=== PATIENT | female | born 1980 ===

== ENCOUNTER 2024-06-24 10:16 | Outpatient (AMB) | payer OTHER, SELFPAY ==
[2024-06-24 10:39] VITALS: BP 130/90; PULSE 84; TEMP 37.6; O2SAT 98
--- NOTE | 2024-06-24 10:39 | AM.OFFWIN_ITS ---
Intake Vital Signs 06/24/24 10:39 Weight 220 lb BP 130/90 H Blood Pressure Location Lt brachial Position Sitting Pulse 84 Pulse Source Pulse Oximeter Temp 99.7 F Temp Source Oral Pulse Oximetry (%) 98 Oxygen Delivery Method Room Air Intake Visit Reasons: EP Sore throat Intake Note: Patient here for sore throat that started about 2 days ago. Patient Tobacco Use Status: Former Tobacco user Allergies Penicillins Adverse Reaction (Intermediate, Verified 06/24/24 10:50) Hives Do you need a note to return to daycare/school/sports/work: Yes HPI HPI Comments History of Present Illness Details She presents to office with L ear pain and ST 2-3 days ongoing 6/10 Throat worse with swallowing No congestion or cough No fatigue or body aches She said low grade fever but no chills PFSH Social History Patient Tobacco Use Status: Former Tobacco user Review of Systems Const Denies chills, Reports fever(s) and Denies headache(s) ENT Reports otalgia, Denies headache(s), Denies nasal congestion, Reports sore throat, Denies throat swelling and Denies tongue swelling Card Denies chest pain and Denies dyspnea Resp Denies cough and Denies dyspnea GI Denies abdominal pain and Denies vomiting Musc Denies myalgias Neuro Denies headache(s) Aller/Immun Denies throat swelling and Denies tongue swelling Physical Exam Vital Signs: Last Vital Signs Temp 99.7 F 06/24/24 10:39 Pulse 84 06/24/24 10:39 BP 130/90 H 06/24/24 10:39 Pulse Ox 98 06/24/24 10:39 Oxygen Delivery Method Room Air 06/24/24 10:39 General: Non-toxic, NAD. Speaking full sentences. Skin: Warm dry throughout Eye: EOMI HENT: Airway patent. Uvula midline. Minimal pharyngeal erythema without exudates or edema. No RUBBING BED OPERATOR. Bilateral canals clear. Slight fluid bilaterally but TM non-erythematous, non- bulging. No TM perforation or hemotympanum noted. Respiratory: CTA bilaterally. No wheezes, rales or rhonchi Cardiac: RRR. No murmur MSK: Full ROM extremities. Neurology: Alert. No aphasia or facial droop. Gait without abnormality Psych: Good mood and affect Assessment & Plan Assessment & Plan (1) Pharyngitis: Code(s): J02.9 - Acute pharyngitis, unspecified Qualifiers: Pharyngitis/tonsillitis etiology: unspecified etiology Qualified Code(s): J02.9 - Acute pharyngitis, unspecified Plan: Patient seen and evaluated. Strep negative No RUBBING BED OPERATOR Declined covid/flu/rsv swab Tylenol/Motrin Fluids, rest Patient gave verbal understanding and had no additional questions or concerns at time of discharge All questions answered Coding Level of Care Code Est Pt Level 3 (54611) Diagnoses Pharyngitis, unspecified etiology J02.9 Pharyngitis/tonsillitis etiology: unspecified etiology
--- OUTSIDE RECORDS SUMMARY | 2024-06-24 12:28 | XMS_ITS | Clinical Summary ---
Author Organization [facility] Address [address] [place] [address] Care Team Providers Care Masonry Instructor Name Role Phone Ed Mckeon PA-C Primary Care Provider [phone] Allergies Active Allergy Reactions Criticality Noted Date Comments Penicillins Hives 07/11/2015 Medications Medication Sig Dispensed Refills Start Date End Date Status albuterol (PROVENTIL) (2.5 MG/3ML) 0.083% nebulizer solution Take 2.5 mg by nebulization every 6 (six) hours as needed for wheezing. 0 Active albuterol (PROVENTIL HFA;VENTOLIN HFA) 108 (90 BASE) MCG/ACT inhaler Inhale 2 puffs into the lungs every 6 (six) hours as needed for wheezing. 0 Active omeprazole (PRILOSEC) 20 MG capsule Take 20 mg by mouth daily. 0 Active Elastic Bandages & Supports (KNEE BRACE/HINGED/REGULAR ) MISC 1 Units by Does not apply route daily. 1 each 0 10/04/2019 Active oxyCODONE-acetaminop hen (PERCOCET) 5-325 MG per tablet Take 1 tablet by mouth every 6 (six) hours as needed for pain. 8 tablet 0 04/30/2021 Active ondansetron (ZOFRAN-ODT) 4 MG disintegrating tablet Take 1 tablet (4 mg total) by mouth every 8 (eight) hours as needed for nausea. 12 tablet 0 04/30/2021 Active Active Problems Problem Noted Date Diagnosed Date Term delivered 12/02/2015 Umbilical hernia 10/27/2015 Immunizations Name Administration Dates Next Due Hepatitis B (Pediatric / Adolescent) (inactive) 07/11/2015 Tdap 12/04/2015 Family History Medical History Relation Name Comments Diabetes Father Heart disease Father Hypertension Father Diabetes Mother Hypertension Mother Relation Name Status Comments Father Alive Mother Alive Social History Tobacco Use Types Packs/Day Years Used Date Smoking Tobacco: Former Cigarettes 0.3 2 0 10/06/2009 - 12/07/2011 Smokeless Tobacco: Never Alcohol Use Standard Drinks/Week Comments No 0 (1 standard drink = 0.6 oz pur e alcohol) Sex and Gender Information Value Date Recorded Sex Assigned at Female 02/20/2019 9:46 PM EDT Gender Identity Not on file Sexual Orientation Not on file Job Start Date Occupation Industry Not on file Not on file Not on file Last Filed Vital Signs Vital Sign Reading Time Taken Comments Blood Pressure 122/78 04/30/2021 11:23 AM EST Pulse 80 04/30/2021 11:23 AM EST Temperature 37 ??C (98.6 ??F) 04/30/2021 11:23 AM EST Respiratory Rate 16 04/30/2021 11:23 AM EST Oxygen Saturation 98% 04/30/2021 11:23 AM EST Inhaled Oxygen Concentration - - Weight 86.2 kg (190 lb) 04/30/2021 11:23 AM EST Height 166.4 cm (5' 5.5 ) 04/30/2021 11:23 AM ES T Body Mass Index 31.14 04/30/2021 11:23 AM EST Plan of Treatment Health Maintenance Due Date Last Done Comments Hepatitis C Screening 1979 COVID-19 Vaccine (#1) 01/12/1980 Depression Screening 1991 BMI Counseling 07/11/1997 Preventative Health Evaluation 07/11/1997 Cervical Cancer Screening (P ap Smear) 07/11/2000 Hepatitis B Vaccines (2 of 3 - 19+ 3-dose series) 08/08/2015 07/11/2015 Influenza Vaccine (#1) 2023 DTap / Tdap / Td (2 - Td or Tdap) 12/03/2025 016 Pneumococcal Vaccine Aged Out No long er eligible based on patient's age to complete this topic RSV Ped < 20 months Aged Out No longe r eligible based on patient's age to complete this topic Advance Directives For more information, please contact: [phone] Latest Code Status on File Code Status Date Activated Date Inactivated Comments Full Code 12/01/2015 7:44 AM 12/04/2015 9:50 PM This co de status was ascertained in the following way: discussion with patient. Care Teams Masonry Instructor Relationship Specialty Start Date End Date Ed Mckeon PA-C [address] [place] [address] PCP - General Physician [employer] Flatbed Driver 10/03/19
--- OUTSIDE RECORDS SUMMARY | 2024-06-24 12:29 | XMS_ITS ---
Author Organization [facility] Address [address] [facility] [id number] [place] [address] Care Team Providers Care Professional Shopper Name Role Phone Joann Phillips Primary Care Provider ALLERGIES Allergen (clinical drug ingredient) Drug/Non Drug Allergy documented on EMR Reaction Allergy Type Onset Date Status penicillin (uncoded) hives Allergy Active REASON FOR VISIT est care, med refill MEDICATIONS Medication SIG (Take, Route, Frequency, Duration) Notes Start Date End Date Status LORazepam 0.5 MG TAKE 1 TABLET BY MOUTH TWICE A DAY NEEDED FOR 30 DAYS for 30 days 06/22/2024 Active Azithromycin 250 MG 2 tablets on the first day, then 1 tablet daily for 4 days Orally Once a day for 5 day(s) 04/26/2023 Not-Taking metFORMIN HCl ER 500 MG 1 tablet with evening meal Orally Once a day for 90 days 10/21/2023 Active LORazepam 1 MG 1 tablet Orally Once a day for 30 days 12/04/2022 Not-Taking Tessalon Perles 100 mg 1 capsule as needed Orally Three times a day for 10 days 06/10/2018 Not-Taking buPROPion HCl ER (XL) 150 MG take 1 tablet Orally daily for 90 days dose adjustment Active Flexeril 5 MG 1 tablet at bedtime as needed Orally Once a day Not-Taking Albuterol Sulfate HFA 108 (90 Base) MCG/ACT 2 puffs as needed Inhalation every 6 hrs for 30 days 06/10/2018 Not-Taking Fioricet 50-300-40 MG 1 capsule as needed Orally every 12 hrs for 15 days 06/24/2018 Not-Taking VITAL SIGNS Blood pressure systolic 121 mm Hg 06/22/19 25 Blood pressure diastolic 75 mm Hg 025 Heart Rate 80 /min 06/22/2024 Respiratory Rate 18 /min 06/22/2024 Height 64 in 06/22/2024 Weight 222.8 lbs 06/22/2024 BMI 38.24 kg/m2 06/22/2024 Oximetry 99 % 06/22/2024 Height-cm 162.56 cm 06/22/2024 Weight-kg 101.06 kg 06/22/2024 Encounters Encounter Location Date Provider Diagnosis [facility]-[address] [place] [id number] 06/22/2024 Joann Phillips Anxiety F41.9 ; PCOS (polycystic ovarian syndrome) E28.2 ; Encounter to establish care Z76.89 ; Screening for diabetes mellitus Z13.1 ; Screening for thyroid disorder Z13.29 ; Screening for lipid disorders Z13.220 ; Screening for blood disease Z13.0 and Vitamin D deficiency E55.9 ASSESSMENTS Encounter Date Diagnosis Assessment Notes Treatment Notes Treatment Clinical Notes 06/22/2024 Anxiety (ICD-10 - F41.9) 06/22/2024 PCOS (polycystic ovarian syndrome) (ICD-10 - E28.2) 06/22/2024 Encounter to establish care (ICD-10 - Z76.89) Patient presents to establish care. Labs ordered to be completed prior to CPE. Labs to be completed fasting. Patient verbalized understanding 06/22/2024 Screening for diabetes mellitus (ICD-10 - Z13.1) 06/22/2024 Screening for thyroid disorder (ICD-10 - Z13.29) 06/22/2024 Screening for lipid disorders (ICD-10 - Z13.220) 06/22/2024 Screening for blood disease (ICD-10 - Z13.0) 06/22/2024 Vitamin D deficiency (ICD-10 - E55.9) PLAN OF TREATMENT Medication Medication Name Sig Start Date Stop Date Notes LORazepam 0.5 MG TAKE 1 TABLET BY KRYSTIAN TH TWICE A DAY NEEDED FOR 30 DAYS for 30 days 06/22/2024 metFORMIN HCl ER 500 MG 1 tablet with ev ening meal Orally Once a day for 90 days 10/21/2023 buPROPion HCl ER (XL) 150 MG take 1 tablet Orally daily for 90 days dose adjustment Treatment Notes Assessment Notes Encounter to establish care Patient pres ents to establish care. Labs ordered to be completed prior to CPE. Labs to be completed fasting. Patient verbalized understanding Pending Test Test Name Order Date COMPREHENSIVE METABOLIC PANEL 06/22/2024 LIPID PANEL WITH REFLEX TO DIRECT LDL VITAMIN D QUESTASSURED 25-OH VIT D, (D2, D3), LC/MS/MS 06/22/2024 TSH W/REFLEX TO FT4 06/22/2024 HEMOGLOBIN A1c 06/22/2024 IRON, TIBC AND FERRITIN PANEL 06/22/2024 CBC (INCLUDES DIFF/PLT) (REFL) Next Appt Details Provider Name:Joann Trish Phillips , 08/10/2024 02:00:00 PM, [address] [place], [id number], Provider Name:Maria Dolores Medrano son, 08/10/2024 03:00:00 PM, [address] [place], [id number], Progress Notes * Examination Category Sub-Category Detail Notes General Examination GENERAL APPEARENCE: normal, well appearing, alert and oriented, in no acute distress, well developed, well nourished, calm and relaxed, cooperative HEART: regular rate and rhy thm, S1, S2 normal, no murmurs LUNGS: clear to auscultatio n bilaterally, no wheezes, rales, rhonchi SKIN: normal, warm and dry , Skin intact PSYCH: alert, oriented
--- OUTSIDE RECORDS SUMMARY | 2024-06-24 12:29 | XMS_ITS | Patient Health Record ---
Author Organization [employer] Address [address] [facility] [id number], [place] [address] Care Team Providers Care Cyber Policy And Strategy Planner Name Role Phone Joann Phillips Primary Care Provider Junoedd Ed Robles [phone] ALLERGIES Allergen (clinical drug ingredient) Drug/Non Drug Allergy documented on EMR Reaction Allergy Type Onset Date Status penicillin (uncoded) hives Allergy Active RESULTS Component Value Reference Range Notes BASIC METABOLIC PANEL Reviewed date:10/15/2023 08:39:01 AM Interpretation: Normal Performing Lab:NL1, [facility], [address] [place] [address], [phone] Sanaz Wilder M.D. Notes/Report: Received Date: [id number] FASTING:YES FASTING: YES GLUCOSE 69 65-99 mg/dL Fasting reference interval UREA NITROGEN (BUN) 9 7-25 mg/dL CREATININE 0.82 0.50-0.99 mg/dL EGFR 90 > OR = 60 mL/min/1.73m2 BUN/CREATININE RATIO SEE NOTE: 6-22 (calc) Not Reported: BUN and Creatinine are within reference range. SODIUM 137 135-146 mmol/L POTASSIUM 4.0 3.5-5.3 mmol/L CHLORIDE 107 98-110 mmol/L CARBON DIOXIDE 22 20-32 mmol/L CALCIUM 9.4 8.6-10.2 mg/dL HEPATIC FUNCTION PANEL Reviewed date:10/15/2023 08:39:01 AM Interpretation: Normal Performing Lab:NL1, [facility], [address] [place], [address] Sanaz Wilder M.D. Notes/Report: Received Date: [id number] FASTING:YES FASTING: YES PROTEIN, TOTAL 7.1 6.1-8.1 g/dL ALBUMIN 4.2 3.6-5.1 g/dL GLOBULIN 2.9 1.9-3.7 g/dL (calc) ALBUMIN/GLOBULIN RATIO 1.4 1.0-2.5 (calc) BILIRUBIN, TOTAL 0.5 0.2-1.2 mg/dL BILIRUBIN, DIRECT 0.1 < OR = 0.2 mg/dL BILIRUBIN, INDIRECT 0.4 0.2-1.2 mg/dL (calc) ALKALINE PHOSPHATASE 47 31-125 U/L AST 17 10-30 U/L ALT 13 6-29 U/L LIPID PANEL WITH REFLEX TO D IRECT LDL Reviewed date:10/15/2023 08:39:01 AM Interpretation: Normal Performing Lab:NL1, [facility], [address] [place] [address], [phone] Sanaz Wilder M.D. Notes/Report: Received Date: [id number] FASTING:YES FASTING: YES CHOLESTEROL, TOTAL 175 <200 mg/dL HDL CHOLESTEROL 55 > OR = 50 mg/dL TRIGLYCERIDES 105 <150 mg/dL LDL-CHOLESTEROL 100 Reference range: <100 Desirable range <100 mg/dL for primary prevention; <70 mg/dL for patients with CHD or diabetic patients with > or = 2 CHD risk factors. LDL-C is now calculated using the Marbin-Adam calculation, which is a validated novel method providing better accuracy than the Friedewald equation in the estimation of LDL-C. Marbin JUAN et al. MARAL. 2013;310(19): 5545-7114 (http://education.[employer].ItsGoinOn/faq/FAQ16 4) CHOL/HDLC RATIO 3.2 <5.0 (calc) NON HDL CHOLESTEROL 120 <130 mg/dL (calc) For patients with diabetes plus 1 major ASCVD risk factor, treating to a non-HDL-C goal of <100 mg/dL (LDL-C of <70 mg/dL) is considered a therapeutic option. TSH W/REFLEX TO FT4 Reviewed date:10/15/2023 08:39:01 AM Interpretation: Normal Performing Lab:NL1, [facility], [address] [place] [address], [phone] Sanaz Wilder M.D. Notes/Report: Received Date: FASTING:YES FASTING: YES TSH W/REFLEX TO FT4 0.69 Reference Range > or = 20 Years 0.40-4.50 Ranges First trimester 0.26-2.66 Second trimester 0.55-2.73 Third trimester 0.43-2.91 LIPASE Reviewed date:10/15/2023 08:39:01 AM Interpretation: Normal Performing Lab:[facility], [facility], [address] [place] [address], [phone] Sanaz Wilder M.D. Notes/Report: Received Date: FASTING:YES FASTING: YES LIPASE 14 7-60 U/L CBC (INCLUDES DIFF/PLT) Reviewed date:10/15/2023 08:39:01 AM Interpretation:Low Performing Lab:[facility], [facility], [address] [place] [address], [phone] Sanaz Wilder M.D. Notes/Report: Received Date: FASTING:YES FASTING: YES WHITE BLOOD CELL COUNT 5.7 3.8-10.8 Thousand/ uL RED BLOOD CELL COUNT 4.43 3.80-5.10 Million/uL HEMOGLOBIN 10.2 11.7-15.5 g/dL HEMATOCRIT 33.4 35.0-45.0 % MCV 75.4 80.0-100.0 fL MCH 23.0 27.0-33.0 pg MCHC 30.5 32.0-36.0 g/dL RDW 17.0 11.0-15.0 % PLATELET COUNT 287 140-400 Thousand/uL MPV 12.3 7.5-12.5 fL ABSOLUTE NEUTROPHILS 3300 3501-7245 cells/uL ABSOLUTE LYMPHOCYTES 8818 455-2270 cells/uL ABSOLUTE MONOCYTES 513 200-950 cells/uL ABSOLUTE EOSINOPHILS 182 15-500 cells/uL ABSOLUTE BASOPHILS 51 0-200 cells/uL NEUTROPHILS 57.9 LYMPHOCYTES 29.0 MONOCYTES 9.0 EOSINOPHILS 3.2 BASOPHILS 0.9 REASON FOR REFERRAL Reason 43 y/o female with h istory gastric bypass surgery, with steatorrhea. Please evaluate and treat Diagnosis 1 Steatorrhea (K90.9) Referral Organization [address] Referring Provider First Name Ed Referring Provider Last Name [facility] Referring Provider Speciality Physician Cardiopulmonary Technologist Referred Provider [facility] GI Referred Provider Specialty Gastroentero logy General Notes Jermaine Ochoa 0 09/30/2023 11:36:24 AM >Referral faxed to [facility] , [address] [place] [address] [address], [facility] [address], , FAX, Jermaine Ochoa 10/17/2023 01:02:35 PM >No appt scheduled, Jermaine Ochoa 12/05/2023 02:13:56 PM >No appt scheduled Clinical Notes Lizzy Jaime 02/21 10:55:32 AM >LVM to f/u no pat in records, Lizzy Jaime 02/22/2024 10:57:19 AM >info mailed Referral Priority Routine Reason * * 43 y/o female jose padron buproprion 150mg (two tablets one day, the next one tablet). She has been chronically managed on buproprion, but found 300mg daily to be too activating ( with difficulty sleeping). Please evaluate and treat for medication management. Diagnosis 1 Moderate episode of recurrent major depressive disorder (F33.1) Referral Organization [address] Referring Provider First Name Ed Referring Provider Last Name [facility] Referring Provider Speciality Physician Cardiopulmonary Technologist Referred Provider Specialty Psychiatry General Notes Latonya Kinney 0 12/05/2023 10:05:08 AM >No answer, left voicemail//GEGregoria Grisel 12/18/2023 10:30:23 AM >No answer, left voicemail//GEGregoria Grisel 12/25/2023 02:49:12 PM >3rd call attempt - LVM and Outreach Letter sent on 12/24 to Scheduled Appt with [facility] Management and Referral Addressed Referral Priority Routine MEDICATIONS Medication SIG (Take, Route, Frequency, Duration) [...] a day for 30 days 12/04/2022 Not-Taking buPROPion HCl ER (XL) 150 MG [...] 12 hrs for 15 days 06/24/2018 Not-Taking Tessalon Perles 100 mg 1 capsule as needed Orally Three times a day for 10 days 06/10/2018 Not-Taking SOCIAL HISTORY Tobacco Use: Social History Observation Description Date Details (start date - stop date) Never Smoker NA - NA Sex Assigned At : Social History Observation Description Sex Assigned At Unknown Tobacco Use/Smoking Question Answer Notes Are you a nonsmoker Alcohol Screen Question Answer Notes Did you have a drink contain ing alcohol in the past year? Yes How often did you have a dri nk containing alcohol in the past year? Monthly or less (1 point) How many drinks did you have on a typical day when you were drinking in the past year? 1 or 2 drinks (0 point) How often did you have 6 or more drinks on one occasion in the past year? Never (0 point) Points 1 Interpretation Negative Sexual History Question Answer Notes Had sex in the past 12 months (vaginal, oral, or anal)? Yes with Men only Use protection? Yes How often? All of the time Prevention strategies discussed: Condoms Have you ever had a Sexually transmitted disease ? No Last menstrual period 04/07/2023 PRAPARE Question Answer Notes What is your current housing situation? I have h ousing Are you worried about losing your housing? No What is the highest level of school that you have finished? I choose not to answer this question What is your current work situation? I choose no t to answer this question In the past year, have you o r any family members you live with been unable to get any of the following when it was really needed? Check all that apply I do not have problems meeting my needs Has lack of transportation k ept you from medical appointments, meetings, work or from getting things needed for daily living? No How often do you see or talk to people that you care about and feel close to? (For example: talking to friends on the phone, visiting friends or family, going to quaker or club meetings) I choose not to answer this question How stressed are you? Stress is when someone feels tense, nervous, anxious, or can\t sleep at night because their mind is troubled Not at all In the past year have you sp ent more than 2 nights in a row in a group home, senior care, fdc center, or juvenile correctional facility? No Are you a refugee? No What country are you from? [place] Do you feel physically and e motionally safe where you currently live? Yes In the past year, have you b een afraid of your partner or ex-partner? No PRAPARE Score: 2 PROBLEMS Problem Type ICD Code Onset Dates Problem Status W/U Status Risk SNOMED Code Notes Problem Episodic cluster headache, not intractable (G44.019) Active confirmed 730300546 Problem Screen for STD (sexually transmitted disease) (Z11.3) Active confirmed 490187360 Problem Vitamin D deficiency (E55.9) Active confirmed 82091704 Problem Anxiety (F41.9) Active confirmed 483734 02 Problem Multinodular goiter (E04.2) Active confirmed 136097931 Problem PCOS (polycystic ovarian syndrome) (E28.2) Active confirmed 415184919 Problem Daytime somnolence (R40.0) Active confirmed 857495595391 Problem Acute knee pain (M25.569) Active confirmed 81507709 Problem Mild intermittent asthma with exacerbation (J45.21) Active confirmed 334595745 Problem Moderate episode of recurrent major depressive disorder (F33.1) Active confirmed 527601715 Problem Iron deficiency anemia secondary to inadequate dietary iron intake (D50.8) Active confirmed 006543146 Problem Cluster headache, not intractable, unspecified chronicity pattern (G44.009) Active confirmed 254751890 Problem Splenomegaly (R16.1) Active confirmed 98895618 Problem History of gastric bypass (Z98.84) Active confirmed 292660090 Problem Steatorrhea (K90.9) Active confirmed 18312012 Problem Chronic major depressive disorder (F34.1) Active confirmed 248270920 Problem Nodule of right lobe of thyroid gland (E04.1) Active confirmed 760208218 VITAL SIGNS Heart Rate 80 /min 06/22/2024 Respiratory Rate 18 /min 06/22/2024 Blood pressure diastolic 75 mm Hg 06/22/2024 Oximetry 99 % 06/22/2024 Height-cm 162.56 cm 06/22/2024 Weight-kg 101.06 kg 06/22/2024 Height 64 in 06/22/2024 Blood pressure systolic 121 mm Hg 06/22/2024 Weight 222.8 lbs 06/22/2024 BMI 38.24 kg/m2 06/22/2024 Encounters Encounter Location Date Provider Diagnosis [address] [id number], [place] [address] 03/27/2024 Joann Phillips [address] [address] [facility] [address] [address] 10/21/2023 [facility] Physical exam Z00.00 ; Screening mammogram for breast cancer Z12.31 ; PCOS (polycystic ovarian syndrome) E28.2 ; Moderate episode of recurrent major depressive disorder F33.1 and Iron deficiency anemia secondary to inadequate dietary iron intake D50.[address] [address] 09/19/2023 [facility] Steatorrhea K90.9 ; Right upper quadrant pain R10.11 ; Screening for diabetes mellitus Z13.1 ; Screening for blood disease Z13.0 ; Screening for thyroid disorder Z13.29 and Screening cholesterol level Z13.[address] [address] 06/22/2024 Joann Phillips Anxiety F41.9 ; PCOS (polycystic ovarian syndrome) E28.2 ; Encounter to establish care Z76.89 ; Screening for diabetes mellitus Z13.1 ; Screening for thyroid disorder Z13.29 ; Screening for lipid disorders Z13.220 ; Screening for blood disease Z13.0 and Vitamin D deficiency E55.9 [id number] [place] [address] 12/03/2023 Ed Mckeon Moderate episode of recurrent major depressive disorder F33.1 ASSESSMENTS Encounter Date Diagnosis Assessment Notes Treatment Notes Treatment Clinical Notes 12/03/2023 Moderate episode of recurrent major depressive disorder (ICD-10 - F33.1) Referral to psychiatry advised to have a further discussion about depression medications. She may continue alternating schedule of 300 mg of Wellbutrin one day, followed by 150 mg the next day. She was advised that a psychiatrist is trained in this area, therefore their expertise could potentially help her find a different medication to help relieve her depression/anxiety, without any worse effects. Patient voiced understanding and agrees with plan. Patient denied further questions or concerns at this time. 09/19/2023 Right upper quadrant pain (ICD-10 - R10.11) 09/19/2023 Steatorrhea (ICD-10 - K90.9) We will obtain lab testing, and refer to CT GI for further workup. Is unclear the reason why she had the still rhinorrhea. Will also obtain an ultrasound to rule out any gallbladder dysfunction. 10/21/2023 Physical exam (ICD-10 - Z00.00) Mammogram screening recommended to r/o life threatening breast cancer. 10/21/2023 Screening mammogram for breast cancer (ICD-10 - Z12.31) 06/22/2024 Anxiety (ICD-10 - F41.9) 06/22/2024 PCOS (polycystic ovarian syndrome) (ICD-10 - E28.2) 06/22/2024 Encounter to establish care (ICD-10 - Z76.89) Patient presents to establish care. Labs ordered to be completed prior to CPE. Labs to be completed fasting. Patient verbalized understanding 10/21/2023 PCOS (polycystic ovarian syndrome) (ICD-10 - E28.2) We will initiate metformin ER 500mg once daily to help with PCOS and insulin insensitivity. She was advised to contact her insurance to see if ozempic is covered. 09/19/2023 Screening for diabetes mellitus (ICD-10 - Z13.1) 10/21/2023 Moderate episode of recurrent major depressive disorder (ICD-10 - F33.1) Buproprion increased to 150mg two tablets once daily. We will continue to monitor on follow up as scheduled in November. Patient voiced understanding and agrees with plan. Patient denied further questions or concerns at this time. 06/22/2024 Screening for diabetes mellitus (ICD-10 - Z13.1) 10/21/2023 Iron deficiency anemia secondary to inadequate dietary iron intake (ICD-10 - D50.8) Begin very low dose iron supplement otc, with vit c, and we will continue to monitor closely. 06/22/2024 Screening for thyroid disorder (ICD-10 - Z13.29) 09/19/2023 Screening for blood disease (ICD-10 - Z13.0) 09/19/2023 Screening for thyroid disorder (ICD-10 - Z13.29) 06/22/2024 Screening for lipid disorders (ICD-10 - Z13.220) 06/22/2024 Screening for blood disease (ICD-10 - Z13.0) 09/19/2023 Screening cholesterol level (ICD-10 - Z13.220) 06/22/2024 Vitamin D deficiency (ICD-10 - E55.9) PLAN OF TREATMENT Pending Test Test Name Order Date Ultrasound : Abdomen 09/19/2023 MAMMOGRAM, SCREENING 10/21/2023 COMPREHENSIVE METABOLIC PANEL 06/22/2024 COMPREHENSIVE METABOLIC PANEL 09/07/2021 COMPREHENSIVE METABOLIC PANEL 04/06/2014 COMPREHENSIVE METABOLIC PANEL 03/13/2017 HEPATITIS PANEL, ACUTE W/REFLEX TO CONFI RMATION 04/06/2014 CHLAMYDIA/N. GONORRHOEAE RNA, TMA 2013 LIPID PANEL WITH REFLEX TO DIRECT LDL LIPID PANEL WITH REFLEX TO DIRECT LDL LIPID PANEL WITH REFLEX TO DIRECT LDL LIPID PANEL WITH REFLEX TO DIRECT LDL VITAMIN D QUESTASSURED 25-OH VIT D, (D2, D3), LC/MS/MS 06/22/2024 VITAMIN D QUESTASSURED 25-OH VIT D, (D2, D3), LC/MS/MS 03/13/2017 HIV AB, HIV 1/2, EIA, WITH REFLEXES 12/2013 RPR (DX) W/REFL TITER AND CONFIRMATORY T ESTING 04/06/2014 TSH W/REFLEX TO FT4 04/06/2014 TSH W/REFLEX TO FT4 03/13/2017 TSH W/REFLEX TO FT4 06/22/2024 TSH W/REFLEX TO FT4 09/07/2021 HSV 1 IGG, TYPE SPECIFIC AB HERPESELECT 10/25/2017 HEMOGLOBIN A1c 03/13/2017 HEMOGLOBIN A1c 06/22/2024 IRON, TIBC AND FERRITIN PANEL 06/22/2024 IRON, TIBC AND FERRITIN PANEL 12/05/2021 IRON, TIBC AND FERRITIN PANEL 03/13/2017 CBC (INCLUDES DIFF/PLT) 03/13/2017 CBC (INCLUDES DIFF/PLT) 04/06/2014 CBC (INCLUDES DIFF/PLT) 12/05/2021 CBC (INCLUDES DIFF/PLT) 10/25/2017 CBC (INCLUDES DIFF/PLT) 09/07/2021 LYME DISEASE AB W/REFL TO BLOT (IGG, IGM ) 10/25/2017 VITAMIN B12/FOLATE, SERUM PANEL 03/13/20 17 VITAMIN B12/FOLATE, SERUM PANEL 09/08/19 22 VITAMIN B12 10/25/2017 CBC (INCLUDES DIFF/PLT) (REFL) Next Appt Details Provider Name:Joann Phillips , 08/10/2024 02:00:00 PM, [address] [place], [address], Provider Name:Maria Dolores hill, 08/10/2024 03:00:00 PM, [address] [place], [address], Insurance Providers Payer Name Payer Address Payer Phone Subscriber Number Group Number Insured Name Patient Relationship to Insured Coverage Start Date Coverage End Date DIV[employer] ADMIN [employer] [address] [place] [id number] Stephanie Peacock Self - patient is the insured MEDICAL (GENERAL) HISTORY Medical History History ICD Code gastric bypass 2010 2012 depression chronic genital herpes Tingling in extremities asthma Right lobe thyroid nodule on u/s 09/17: F NA biopsy recommended Thyroid biopsy 10/18: benign follicular n odule Surgical History Surgery Date(Month/Year) gastric bypass Hospitalization History Reason Date(Month/Year) see above cset girl 6.pounds 5 ounces 07/07/2012
--- OUTSIDE RECORDS SUMMARY | 2024-06-24 12:29 | XMS_ITS | Continuity of Care Document ---
Author Organization [facility] Address [address] [place] [address] Phone Care Team Providers Care Car Lubricator Name Role Phone Unavailable Unavailable Unavailable Procedures Procedure Date FOCUSED OUT/PT TEST, URINE (IH) EXPANDED OUT/PT URINE TEST Results Test Name Date and Time Measure Units Reference Range Abnormal Flag Status Comments Panel Description: TEST, URINE (IH) U nknown TEST, URINE (IH) 00:00:00 Positive Unknown Panel Description: TEST, URINE (IH) U nknown Document 00:00:00 See [facility] Archive Unknown [facility] Conversion Advance Directives Directive Yes / No Effective Date File Name No Information Encounters Encounter Description Practice Location Reason(s) For Visit Diagnoses Date Provider Providers Copied on Encounter FOCUSED OUT/PT [facility], [address] [place] [address], [facility], tel:[phone] Critical access hospital No Information 9 No Information [facility], [address] [place] [address], [facility], tel:[phone] Conversion U/S dating 9 No Information EXPANDED OUT/PT [facility], [address] [place] [address], [facility], tel:[phone] Critical access hospital No Information 7 No Information [facility], [address] [place] [address], [address], tel:[phone] Conversion EXAMINATION OR TEST 7 No Information Family History Family Member Type Diagnosis Age At Onset No Information Payers Payer name Insurance type Covered republican ID Authoriza tion(s) No Information Social History Type Description Quantity Date Captured Comments Sex Female Smoking Status No Information Vital Signs Date / Time: Height Weight BMI Pulse Rate Blood Pressure Temperature Respiratory Rate Body Surface Area Head Circumference Head Circ. Percentile Wt./Jayson. Percentile BMI percentile Pulse Ox Inhaled Ox 138.000 kg (305.00 lbs) 91 /min 128/80 mm[Hg] Chief Complaint And Reason For Visit No Information Reason For Referral Reason For Referral No Information History Of Present Illness Encounter Date Complaint History Of Prese nt Illness No Information Functional Status Date Functional Assessmen t No Information Instructions Date Instruction Additional Infor mation No Information Assessments Type Assessment Date No Information Patient Care Teams Name Effective Dates (start - stop) Status Members No Information
--- OUTSIDE RECORDS SUMMARY | 2024-06-24 12:29 | XMS_ITS | Clinical Summary ---
Author Organization [facility] Address [address] [place] [address] Care Team Providers Care Cdl Service Technician Name Role Phone Derrick Acosta MD Primary Care Provider [phone] Medications Omeprazole (PriLOSEC) [address] capsule TAKE 1 CAPSULE 30-60 min before breakfast 30 3 9 Active raNITIdine HCl (ZANTAC) 150 MG tablet TAKE 1 TABLET AT BEDTIME. 30 3 9 Active Active Problems Problem Noted Date Diagnosed Date Nondisplaced fracture of lateral condyle of left tibia 11/03/2019 Postnasal drip 09/07/2018 Overview (06/02/2023): Transitioned From: Normal throat exam Impression - [id number]: - Area of visible concern on posterior oropharynx was cobblestoning of the posterior oropharyngeal mucosa. This was secondary to LPR. Esophageal stricture 08/19/2018 Overview (06/02/2023): Impression - [id number]: - GI referral Laryngopharyngeal reflux 08/19/2018 Overview (06/02/2023): Impression - [id number]: - I had an extensive discussion with the patient regarding their laryngeal examination and findings which are suggestive of laryngopharyngeal reflux. We discussed lifestyle modifications including dietary changes, weight loss and medical management. Patient provided with handout.; - Omeprazole 40 mg once daily, Ranitidine 150 mg at bedtime.; - Follow-up in 8 weeks, sooner as needed. GERD (gastroesophageal reflux disease) 9 Family History Medical History Relation Name Comments Allergies (med/food/envrnmt) Other Multiple allergies : Other Asthma Other asthma : Other Hypertension Other hypertension : Other Relation Name Status Comments Other Social History Tobacco Use Types Packs/Day Years Used Date Smoking Tobacco: Never Assessed Comments:Smoking Status:Form er smoker Comments Unknown Sex and Gender Information Value Date Recorded Sex Assigned at Not on file Legal Sex Female 10:51 PM EDT Gender Identity Not on file Sexual Orientation Not on file Plan of Treatment Health Maintenance Due Date Last Done Comments Hepatitis C Screening 1979 Pap Smear 1995 DTaP/Tdap/Td (1 - Tdap) 07/11/1997 Hep B (1 of 3 - 19+ 3-dose series) 07/11/1998 Mammogram/Breast Imaging 2019 COVID-19 Vaccine (2023-2 5 season) 2023 Influenza (#1) 2023 Zoster (Shingrix) (1 of 2) 07/11/2029 HPV Vaccine Aged Out No longer eligi ble based on patient's age to complete this topic Hep A Aged Out No longer eligi ble based on patient's age to complete this topic Hib Aged Out No longer eligi ble based on patient's age to complete this topic Meningococcal ACWY Aged Out No longer eligible based on patient's age to complete this topic Pneumococcal Aged Out No longer eligi ble based on patient's age to complete this topic Care Teams Cdl Service Technician Relationship Specialty Start Date End Date Derrick Acosta MD [address] [place] [address] PCP - General 12/03/22
--- OUTSIDE RECORDS SUMMARY | 2024-06-24 12:29 | XMS_ITS ---
Author Organization [facility]. Address [address] [facility] [id number] [place] [address] Care Team Providers Care Water Main Inspector Name Role Phone Joann Phillips Primary Care Provider Ed Mckeon Unavailable [phone] REASON FOR REFERRAL Reason * * 43 y/o female jose padron buproprion 150mg (two tablets one day, the next one tablet). She has been chronically managed on buproprion, but found 300mg daily to be too activating ( with difficulty sleeping). Please evaluate and treat for medication management. Diagnosis 1 Moderate episode of recurrent major depressive disorder (F33.1) Referral Organization [address] Referring Provider First Name Ed Referring Provider Last Name Mike Referring Provider Speciality Physician Product Inspection Coordinator Referred Provider Specialty Psychiatry General Notes Latonya Kinney 0 12/05/2023 10:05:08 AM >No answer, left voicemail//GEGregoria Grisel 12/18/2023 10:30:23 AM >No answer, left voicemail//GEGregoria Grisel 12/25/2023 02:49:12 PM >3rd call attempt - LVM and Outreach Letter sent on 12/24 to Scheduled Appt with [facility] and Referral Addressed Referral Priority Routine REASON FOR VISIT Anxiety/ depression fu MEDICATIONS Medication SIG (Take, Route, Frequency, Duration) Notes Start Date End Date Status Tessalon Perles 100 mg 1 capsule as needed Orally Three times a day for 10 days 06/10/2018 Not-Taking metFORMIN HCl ER 500 MG 1 tablet with evening meal Orally Once a day for 90 days 10/21/2023 Active LORazepam 0.5 MG TAKE 1 TABLET BY MOUTH TWICE A DAY NEEDED FOR 30 DAYS for 30 11/11/2023 Active buPROPion HCl ER (XL) 150 MG 2 tablet, and then 1 tablet the following day, alternating between 300mg daily and 150mg the next day Orally as directed for 90 days dose adjustment Active Fioricet 50-300-40 MG 1 capsule as needed Orally every 12 hrs for 15 days 06/24/2018 Not-Taking Azithromycin 250 MG 2 tablets on the first day, then 1 tablet daily for 4 days Orally Once a day for 5 day(s) 04/26/2023 Not-Taking LORazepam 1 MG 1 tablet Orally Once a day for 30 days 12/04/2022 Not-Taking Flexeril 5 MG 1 tablet at bedtime as needed Orally Once a day Not-Taking Albuterol Sulfate HFA 108 (90 Base) MCG/ACT 2 puffs as needed Inhalation every 6 hrs for 30 days 06/10/2018 Not-Taking Encounters Encounter Location Date Provider Diagnosis [id number] [place] [address] 12/03/2023 Ed [facility] Moderate episode of recurrent major depressive disorder [...] further questions or concerns at this time. PLAN OF TREATMENT Medication Medication Name Sig Start Date Stop Date Notes buPROPion HCl ER (XL) 150 MG 2 tablet, and then 1 tablet the following day, alternating between 300mg daily and 150mg the next day Orally as directed for 90 days dose adjustment Treatment Notes Assessment Notes Moderate episode of recurren t major depressive disorder Referral to psychiatry advised to have a [...] further questions or concerns at this time. Referrals Referral Date Details * * 43 y/o female ta vito buproprion 150mg (two tablets one day, the next one tablet). She has been chronically managed on buproprion, but found 300mg daily to be too activating ( with difficulty sleeping). Please evaluate and treat for medication management. Next Appt Details Follow Up: prn, Reason: Provider Name:Joann Phillips , 08/10/2024 02:00:00 PM, [address] [place], [address], Provider Name:Maria Dolores hill, 08/10/2024 03:00:00 PM, [address] [place], [address], Consultation Request Notes Referral Date Referring Provider Referred Provider Not es 12/03/2023 Ed Mckeon , * * 43 y/o female taking buproprion 150mg (two tablets one day, the next one tablet). She has been chronically managed on buproprion, but found 300mg daily to be too activating ( with difficulty sleeping). Please evaluate and treat for medication management.
--- OUTSIDE RECORDS SUMMARY | 2024-06-24 12:29 | XMS_ITS ---
Author Name [facility] Organization Unknown History of Medication Use Medication Directions Dispensed Refills Start Date End Date Stat Wellbutrin SR 150 mg tablet, 12 hr sustained-release Take 1 tablet twice a day by oral route. 8 completed cefdinir 300 mg capsule TAKE 1 CAPSULE (300 MG) BY MOUTH TWICE PER DAY (EVERY 12 HOURS) FOR 7 DAYS. 3 completed terconazole 0.4 % vaginal cream INSERT 1 APPLICATORFUL VAGINALLY EVERY DAY FOR 7 DAYS 3 completed terconazole 0.4 % vaginal cream Insert 1 applicatorful every day by vaginal route for 7 days. Insert 1 applicatorful every day by vaginal route for 7 days. completed ondansetron HCl 4 mg tablet 1 TABLET BY MOUTH 3 TIMES A DAY NEEDED NAUSEA 3 completed Zoloft 25 mg tablet TAKE 1 TABLET BY ORAL ROUTE EVERY DAY active nitrofurantoin monohydrate/macrocry stals 100 mg caps 3 completed ferrous sulfate 325 mg (65 mg iron) tablet,delayed release Take 1 tablet every day by oral route for 30 days. 06/21/2015 7 completed azithromycin 250 mg tablet TAKE 2 TABLETS BY MOUTH TODAY, THEN TAKE 1 TABLET DAILY FOR 4 DAYS DIRECTED 4 completed cyclobenzaprine 10 mg tablet Take 1 tablet 3 times a day by oral route as needed. 7 completed celecoxib 200 mg capsule TAKE 1 CAPSULE TWICE A DAY WHEN NECESSARY WITH FOOD FOR PAIN 3 completed Allergies Allergen Reaction Severity Comment Documented Date Source Statu s MEDICINAL PRODUCT CONTAINING PENICILLIN AND ACTING ANTIBACTERIAL AGENT (PRODUCT) 09/26/2012 [facility] active Problems Problem Status Onset Date Problem Type Date of Resoluti on Source Abnormal uterine bleeding active ProblemAct [facility] Pain in pelvis active ProblemAct [facility] Asthma active 2012-09-26 ProblemAct [facility] History of gastric bypass active [facility] Steatorrhea active En[facility]DiagnosisAct [facility] Immunizations Vaccine Date Source Lot Number Status influenza, unspecified formulation [facility]
--- OUTSIDE RECORDS SUMMARY | 2024-06-24 12:29 | XMS_ITS | Data Portability ---
Author Organization [place] - [facility], [facility] Address [id number] [place] [address] Care Team Providers Care Casing Wringer Operator Name Role Phone KENA MIMI Primary Care Provider [phone] Assessment Encounter Date Assessment Date Assessment LastModified by Organization Details LastModified Time 04/18/2018 04/18/2018 37yo , desires sterilization for Laparoscopic bilateral salpingectomy [email or web address] Not available 04/18/2018 17:04:12 12/03/2023 12/03/2023 Pt with intermenstrual bleeding versus irregular menses. UPT done- Neg, advised to repeat in 2 weeks. Discussed PCOS as well as perimenopause. Pt to make appt for AOV and continue to monitor menses. If problematic can review options with OBGYN. If bleeding becomes heavy or she has pain again, should contact OBGYN for a sooner problem visit. Sureswab done to check for infection. Normal bimanual exam, pain has resolved. [email or web address] Not available 12/03/2023 19:05:05 Plan of Treatment Reminders Order Date Submit Date Provider Last Modified By Organization Details Last Modified Time Details Appointments None recorded. Lab bacterial vaginosis + vaginitis panel, vaginal 2023 024 [facility], [address] [place], [address] 14:31:13 test, urine 2023 024 [email or web address] In-Office Order, Internal Use Only DO Not Attach Compendium DO Not Attach Compendium, Do Not Delete/merge, [id number] 4 19:05:06 testosteron e, free, serum 2022 023 [facility], [address] [place] [address], 3 07:39:53 dhea-sulfat e, serum 2022 023 [facility], [address] [place] [address], 3 07:39:53 17-hydroxyp rogesterone , QN, serum 2022 023 [facility], [address] [place] [address], 3 07:39:54 insulin, fasting, serum 2022 023 [facility], [address] [place] [address], 3 07:39:54 pap, IG + HPV 2021 023 [email or web address], [address] [place] [address], 3 12:42:09 CBC w/ auto diff 2022 023 [facility], [address] [place] [address], 3 07:39:51 lipid panel, serum 2022 023 [facility], [address] [place] [address], 3 07:39:52 CMP, serum or plasma 2022 023 [facility], [address] [place] [address], 3 07:39:52 vitamin D, 25-hydroxy, total, serum 2022 023 [facility], [address] [place] [address], 3 07:39:52 HbA1c (hemoglobin A1c), blood 2022 023 [facility], [address] [place] [address], 3 07:39:53 TSH, serum or plasma 2022 023 [facility], [address] [place] [address], 3 07:39:53 urinalysis, dipstick 2022 023 [email or web address] In-Office Order, Internal Use Only DO Not Attach Compendium DO Not Attach Compendium, Do Not Delete/merge, [id number] 3 16:31:20 culture, urine 2022 023 [facility], [address] [place] [address], 3 11:37:19 urinalysis, dipstick 2021 022 [email or web address] In-Office Order, Internal Use Only DO Not Attach Compendium DO Not Attach Compendium, Do Not Delete/merge, [id number] 2 16:33:08 latisha wet prep 2021 022 [email or web address] In-Office Order, Internal Use Only DO Not Attach Compendium DO Not Attach Compendium, Do Not Delete/merge, [id number] 2 13:25:59 whiff test, vaginal fluid 2021 022 [email or web address] In-Office Order, Internal Use Only DO Not Attach Compendium DO Not Attach Compendium, Do Not Delete/merge, [id number] 2 13:25:59 HBsAg (hepatitis B surface Ag), confirmatio n, serum - Donna Xaviermasha [facility] 2021 022 [facility], [address] [place] [address], 2 13:26:13 RPR (rapid plasma reagin), serum - Donna Xaviermasha [facility] 2021 022 [facility], [address] [place] [address], 2 13:26:13 HIV 1+2 AB + HIV 1 p24 Ag, qualitative immunoassay , serum - Donna Awan [facility] 2021 [facility], [address] [place] [address], [id number] 2 13:26:12 hepatitis C Ab, serum - Donna Awan [facility] 2021 [facility], [address] [place] [address], [id number] 2 13:26:13 CT + NG DNA, PCR, unspecified specimen - Donna Awan [facility] 2021 [facility], [address] [place] [address], [id number] 2 02:56:21 pap, IG + HPV 2018 019 [facility], [address] [place] [address], [id number] 9 07:56:12 culture, urine 2017 018 [facility], [address] [place] [address], [id number] 8 14:24:05 Referral None recorded. Procedures None recorded. Surgeries None recorded. Imaging MAMMO, screening, tomosynthes is, bilateral [address] [facility] ([facility]) , [address], [place], [address], 3 16:31:20 MAMMO, screening, digital, bilateral, w/ CAD 2018 019 [facility] (Central[facility]) , [address], [address], [place], [address], 0 07:43:24 Medication Orders Diflucan 150 mg tablet 2021 [facility][id number], [address] [place], [address], 2 13:26:02 terconazole 0.4 % vaginal cream 2021 [facility]EM[facility] #[id number], [address] [place], [address], 13:26:02 oxycodone 5 mg tablet 2017 018 lfadoir [facility] #[id number], [address] [place], [address], 9 12:59:45 ibuprofen 800 mg tablet 2017 018 lfadoir [facility][id number], [address] [place], [address], 9 12:59:43 Patient TargetsNo targets recorded. Patient Instructions Encounter Date Encounter Id Patient Instructions Last Modified By Organization Details Last Modified Time 03/31/2022 [id number] vaginal yeast infection: care instructions Not available 03/31/2022 13:25:59 sexually transmitted disease education Not available 03/31/2022 13:25:59 Reason for Referral None Reported. Results Created Date Observation Date Name Description Value Unit Range Abnormal Flag Note LastModifiedBy Organization Detail LastModifiedTime 04/18/20 18 04/20/2018 cultu re, urine source UNSU Not Available [facility] [address] [place], [address] 04/20/2018 14:24:05 04/18/20 18 04/20/2018 cultu re, urine culture CULTU RE, URINE , ROUTI NE MICRO NUMBE R: [id number] TEST STATU S: FINAL SPECI MEN SOURC E: UNSU SPECI MEN QUALI TY: ADEQU ATE RESUL T: No Growt h Not Available [facility] [address] [place], [address] 04/20/2018 14:24:05 02/21/20 19 02/20/2019 HPV DNA, high- risk HPV MRNA E6/E7 Negati ve negati ve APTIM A HPV assay detec ts 14 high risk HPV types (HPV 16,18 ,31,3 3,35, 39,45 ,51,5 2,56, 58,59 ,66,6 8). The assay is FDA appro benny for testi ng ThinP rep liqui d Pap vials but not FDA appro benny for detec ting HPV in SureP ath liqui d Pap speci mens. In-ho use valid ation has shown the assay can detec t all HPV types from this sourc e Not Available [facility] [address] [place], [address] 02/27/2019 07:56:09 02/21/2002/20/2019 pap, IG + HPV report Report Final Gynec ologi mikael Cytol ogy Repor t ----- ----- ----- ----- ----- ----- ----- ----- ----- ----- ----- ----- ThinP rep Pap Test, HPV Scree n, Refle x HPV Genot ype SPECI MEN ADEQU ACY: SATIS FACTO RY FOR EVALU ATION ; ENDOC ERVIC AL/TR ANSFO RMATI ON ZONE COMPO NENT PRESE NT. INTER PRETA TION: NEGAT MADELINE FOR INTRA EPITH ELIAL LESIO N OR YARED PATINO . The sampl e conta ined exces sive blood , rende ring the origi nal slide unsat isfcontreras santa for inter preta tion. The sampl e was treat ed with aceti c acid to enabl e prepa ratio n of a secon d slide which conta ined enoug h squam ous cells to allow for cytol ogic inter preta tion. Elect lance Shepherd d: Anne-Marie Barragan CT ([facility] ) Elect lance Shepherd d: Katheryn Robison CT ([facility] ) ----- ----- ----- ----- ----- ----- ----- ----- ----- ----- ----- ----- CLINI MIKAEL INFOR MATIO N: LMP: ng Speci men Sourc e: Cervi x, Endoc ervix HPV RESUL TS: HPV mRNA E6/E7 [id number] Appro benny: 02/23 Negat madeline REF RANGE : Negat madeline CPT Codes : 87611 ICD Codes : Z01.4 19 Not Available [facility] [address] [place], [address] 02/27/2019 07:56:12 03/31/20 22 04/03/2022 CHLAM YDIA/ N. GONOR RHOEA E RNA, TMA, UROGE NITAL chlamydia trachomatis RNA, tma, urogenital NOT DETECT ED not detect ed normal Not Available [facility] [place] [facility] [address], [address], 04/03/2022 02:56:21 03/31/20 22 04/03/2022 CHLAM YDIA/ N. GONOR RHOEA E RNA, TMA, UROGE NITAL neisseria gonorrhoeae RNA, tma, urogenital NOT DETECT ED not detect ed normal Not Available [facility] [place] [facility] [address], [address], 04/03/2022 02:56:21 03/31/20 22 04/03/2022 CHLAM YDIA/ N. GONOR RHOEA E RNA, TMA, UROGE NITAL comment The shelbi tical perfo rmanc e shay cteri stics of this assay , when used to test SureP ath(T M) speci mens have been deter mined by [facility]. The modif icati ons have not been clear ed or appro benny by the FDA. This assay has been valid ated pursu ant to the CLIA regul ation s and is used for clini mikael purpo ses. For addit ional infor tosha martinez e refer to https ://ed ucati on.qu estdi [employer] tics. com/f aq/FA Q154 (This link is being provi ded for infor senthil fisher/ educbecky barrientos l purpo ses only. ) Not Available [facility] [place] [facility] [address], [address], 04/03/2022 02:56:21 03/31/20 22 03/31/2022 urina lysis , dipst ick Leukocytes Negati ve Not Available In-Office Order Internal Use Only DO Not Attach Compendium DO Not Attach Compendium, Do Not Delete/merge, [id number] 03/31/2022 14:31:28 03/31/20 22 03/31/2022 urina lysis , dipst ick Nitrite negati ve Not Available In-Office Order Internal Use Only DO Not Attach Compendium DO Not Attach Compendium, Do Not Delete/merge, [id number] 03/31/2022 14:31:28 03/31/20 22 03/31/2022 urina lysis , dipst ick Urobilinogen Normal : 0.2 mg/dl Not Available In-Office Order Internal Use Only DO Not Attach Compendium DO Not Attach Compendium, Do Not Delete/merge, [id number] 03/31/2022 14:31:28 03/31/20 22 03/31/2022 urina lysis , dipst ick Protein Negati ve Not Available In-Office Order Internal Use Only DO Not Attach Compendium DO Not Attach Compendium, Do Not Delete/merge, [id number] 03/31/2022 14:31:28 03/31/20 22 03/31/2022 urina lysis , dipst ick pH 5.0 Not Available In-Office Order Internal Use Only DO Not Attach Compendium DO Not Attach Compendium, Do Not Delete/merge, [id number] 03/31/2022 14:31:28 03/31/20 22 03/31/2022 urina lysis , dipst ick Blood Large: +3 Not Available In-Office Order Internal Use Only DO Not Attach Compendium DO Not Attach Compendium, Do Not Delete/merge, [id number] 03/31/2022 14:31:28 03/31/20 22 03/31/2022 urina lysis , dipst ick Ketone Negati ve Not Available In-Office Order Internal Use Only DO Not Attach Compendium DO Not Attach Compendium, Do Not Delete/merge, [id number] 03/31/2022 14:31:28 03/31/20 22 03/31/2022 urina lysis , dipst ick Bilirubin Negati ve Not Available In-Office Order Internal Use Only DO Not Attach Compendium DO Not Attach Compendium, Do Not Delete/merge, [id number] 03/31/2022 14:31:28 03/31/20 22 03/31/2022 urina lysis , dipst ick Glucose Negati ve Not Available In-Office Order Internal Use Only DO Not Attach Compendium DO Not Attach Compendium, Do Not Delete/merge, [id number] 03/31/2022 14:31:28 03/31/20 22 03/31/2022 urina lysis , dipst ick Appearance Clear Not Available In-Offi ce Order Internal Use Only DO Not Attach Compendium DO Not Attach Compendium, Do Not Delete/merge, [id number] 03/31/2022 14:31:28 03/31/20 22 03/31/2022 urina lysis , dipst ick Color Yellow Not Available In-Office Order Internal Use Only DO Not Attach Compendium DO Not Attach Compendium, Do Not Delete/merge, [id number] 03/31/2022 14:31:28 03/31/20 22 03/31/2022 whiff test, vagin al fluid Result negati ve Not Available In-Office Order Internal Use Only DO Not Attach Compendium DO Not Attach Compendium, Do Not Delete/merge, [id number] 03/31/2022 13:22:43 03/31/20 22 03/31/2022 latisha wet prep Hyphae Presen t Not Available In-Office Order Internal Use Only DO Not Attach Compendium DO Not Attach Compendium, Do Not Delete/merge, [id number] 03/31/2022 13:22:42 03/31/20 22 03/31/2022 latisha wet prep Clue Cells Absent Not Available In-Offi ce Order Internal Use Only DO Not Attach Compendium DO Not Attach Compendium, Do Not Delete/merge, [id number] 03/31/2022 13:22:42 03/31/20 22 03/31/2022 latisha wet prep Yeast Presen t Not Available In-Office Order Internal Use Only DO Not Attach Compendium DO Not Attach Compendium, Do Not Delete/merge, [id number] 03/31/2022 13:22:42 03/31/20 22 03/31/2022 latisha wet prep Other neg tric Not Available In-Office Order Internal Use Only DO Not Attach Compendium DO Not Attach Compendium, Do Not Delete/merge, [id number] 03/31/2022 13:22:42 05/11/19 23 05/13/2022 CULTU RE, URINE , ROUTI NE culture, urine, routine SEE NOTE CULTU RE, URINE , ROUTI NE Micro Numbe r: [id number] Test Statu s: Final Speci men Sourc e: Urine , clean catch Speci men Quali ty: Adequ ate Resul t: Mixed genit al crow isola mary. These super ficia l bacte cleopatra are not indic ative of a urina ry tract infec tion. No furth er organ ism ident ifica tion is warra nted on this speci men. If clini stefanie indic ated, recol lect clean -catc h, mid-s tream urine and trans marika immed iatel y to Urine Cultu re Trans port Tube. Not Available [employer] [facility] [address], [address], 05/13/2022 11:37:19 05/11/19 23 05/19/2022 THINP REP TIS PAP AND HPV MRNA E6/E7 WITH REFLE X TO HPV 16,18 /45 clinical information: normal Routi ne exam Not Available [facility] [address], [place], [address], 05/19/2022 12:42:09 05/11/19 23 05/19/2022 THINP REP TIS PAP AND HPV MRNA E6/E7 WITH REFLE X TO HPV 16,18 /45 LMP: normal 04/24 Not Available [facility] [address], [address], 05/19/2022 12:42:09 05/11/19 23 05/19/2022 THINP REP TIS PAP AND HPV MRNA E6/E7 WITH REFLE X TO HPV 16,18 /45 prev. Pap: normal 02/20 Not Available [facility] [address], [place], [address], 05/19/2022 12:42:09 05/11/19 23 05/19/2022 THINP REP TIS PAP AND HPV MRNA E6/E7 WITH REFLE X TO HPV 16,18 /45 prev. BX: normal NONE GIVEN Not Available [facility] [address], [place], [address], 05/19/2022 12:42:09 05/11/1905/19/2022 THINP REP TIS PAP AND HPV MRNA E6/E7 WITH REFLE X TO HPV 16,18 /45 source: normal Cervi x, Endoc ervix Not Available [facility] [address], [place], [address], 05/19/2022 12:42:09 05/11/1905/19/2022 THINP REP TIS PAP AND HPV MRNA E6/E7 WITH REFLE X TO HPV 16,18 /45 statement of adequacy: normal Satis facto ry for evalu ation . Endoc ervic al/tr ansfo rmati on zone compo nent prese nt. Not Available [facility] [address], [place], [address], 05/19/2022 12:42:09 05/11/1905/19/2022 THINP REP TIS PAP AND HPV MRNA E6/E7 WITH REFLE X TO HPV 16,18 /45 interpretati on/result: normal Negat madeline for intra epith elial lesio n or malig marcella . Not Available [facility] [place] [facility] [address], [place], [address], 05/19/2022 12:42:09 05/11/1905/19/2022 THINP REP TIS PAP AND HPV MRNA E6/E7 WITH REFLE X TO HPV 16,18 /45 comment: normal This Pap test has been evalu ated with compu ter [place] mary techn ology . Not Available [facility] [place] [facility] [address], [place], [address], 05/19/2022 12:42:09 05/11/19 23 05/19/2022 THINP REP TIS PAP AND HPV MRNA E6/E7 WITH REFLE X TO HPV 16,18 /45 cytotechnolo gist: normal MSM, CT( CP) CT scree kj locat ion: [facility] [address], [place] [id number] Not Available [facility] [place] [facility] [address], [place], [address], 05/19/2022 12:42:09 05/11/19 23 05/19/2022 THINP REP TIS PAP AND HPV MRNA E6/E7 WITH REFLE X TO HPV 16,18 /45 comment EXPLA NATOR Y NOTE: The Pap is a scree kj test for cervi mikael cance r. It is not a diagn ostic test and is subje ct to false negat madeline and false posit madeline resul ts. It is most relia ble when a satis facto ry sampl e, regul radha obtai meg, is submi tted with relev ant clini mikael findi ngs and histo ry, and when the Pap resul t is evalu ated along with histo ronnie and curre nt clini mikael infor matio n. Not Available [facility] [place] [facility] [address], [place], [address], 05/19/2022 12:42:09 05/11/19 23 05/19/2022 THINP REP TIS PAP AND HPV MRNA E6/E7 WITH REFLE X TO HPV 16,18 /45 HPV MRNA E6/E7 Not Detect ed not detect ed normal Metho dolog y: Trans cript ion-M ediat ed Ampli ficat ion This assay detec ts E6/E7 viral messe nger RNA (mRNA ) from 14 high- risk HPV types (16,1 8,31, 33,35 ,39,4 5,51, 52,56 ,58,5 9,66, 68). Cervi mikael sourc es are requi red for HPV testi ng. If a vagin al sourc e from a patie nt who has had a total hyste recto my with remov al of cervi x was submi tted, pleas e conta ct the testi ng labor atory for alter nativ e testi ng optio ns. For addit ional infor tosha martinez e refer to http: //[facility] cesar fisher.que stdia gnost ics.c om/fa q/FAQ 129v1 (This link if provi ded for infor senthil fisher/ educa floyd l purpo ses only. ) Not Available [facility] [address] [place] [address], [place], [address], 05/19/2022 12:42:09 05/11/19 23 05/11/2022 urina lysis , dipst ick Interpretati on negati ve Not Available In-Office Order Internal Use Only DO Not Attach Compendium DO Not Attach Compendium, Do Not Delete/merge, [id number] 05/11/2022 15:52:59 12/03/19 24 12/03/2023 ADVAN BING BACTE RIAL VAGIN OSIS (BV), TMA adv bacterial vaginosis (bv), tma Negati ve negati ve Not Available [facility] [address], [place], 12/04/2023 14:31:12 12/03/19 24 12/03/2023 ADVAN BING MONA DA VAGIN ITIS (CV)/ TRICH OMONA S VAGIN BRISEYDA (TV), TMA giovanni species Negati ve negati ve Not Available [facility] [address], [place], 12/04/2023 14:31:13 12/03/19 24 12/03/2023 ADVAN BING MONA DA VAGIN ITIS (CV)/ TRICH OMONA S VAGIN BRISEYDA (TV), TMA giovanni glabrata Negati ve negati ve Not Available [facility] [address], [place], 12/04/2023 14:31:13 12/03/19 24 12/03/2023 ADVAN BING MONA DA VAGIN ITIS (CV)/ TRICH OMONA S VAGIN BRISEYDA (TV), TMA trichomonas vaginalis (TV), tma Negati ve negati ve Not Available [facility] [address] [place], [address] 12/04/2023 14:31:13 12/03/19 24 12/03/2023 CHLAM YDIA/ GONOR RHOEA E RNA, TMA neisseria gonorrhoeae RNA, tma Negati ve negati ve The perfo rmanc e of endoc ervic al, vagin al, and male ureth ral swab speci mens, male and femal e urine speci mens, and Prese rvCyt Solut ion liqui d Pap speci mens has not been evalu ated in adole scent s less than 16 years of age. Not Available [facility] [address] [place], [address] 12/04/2023 14:31:14 12/03/19 24 12/03/2023 CHLAM YDIA/ GONOR RHOEA E RNA, TMA chlamydia trachomatis RNA, tma Negati ve negati ve The perfo rmanc e of endoc ervic al, vagin al, and male ureth ral swab speci mens, male and femal e urine speci mens, and Prese rvCyt Solut ion liqui d Pap speci mens has not been evalu ated in adole scent s less than 16 years of age. Not Available [facility] [address] [place], [address] 12/04/2023 14:31:14 12/03/19 24 12/03/2023 pregn luisa test, urine Result negati ve Not Available In-Office Order Internal Use Only DO Not Attach Compendium DO Not Attach Compendium, Do Not Delete/merge, [id number] 12/03/2023 19:04:20 02/24/20 19 02/20/2019 CT, abdom en + pelvi s, w/ contr ast No observ ation record ed. [email or web address] Not Available 2018 11:15:56 05/11/19 23 05/11/2022 US, trans vagin al RAD [email or web address] [employer] [id number] 05/15/2022 16:07:29 Result Notes Documentation Provider Name and Address Organization Details Recorded Time Pap, Ig + Hpv Mrna E6/e7 + Reflex Hpv (16+18+45) : PAP wnl, neg HPV GILLES MARES MD [address], [place], [address], [facility] 05/20/2022 20:17:04 Problems Name Problem SNOMED Code Status Onset Date Resolution Date Notes Provider Name and Address Organization Details Recorded Time Gestatio n period, 30 weeks [id number] Completed 01/25/2018 Removal Reason: N/A GILLES MARES MD [address] [facility], [place], [address], [facility] 8 05:51:26 Gestatio n period, 30 weeks [id number] Completed Kerline Palmer null, [facility] 6 16:14:11 Gestatio n period, 33 weeks 84681775 Completed 01/25/2018 Removal Reason: N/A GILLES MARES MD [address], [place], [address], [facility] 8 05:51:34 Gestatio n period, 33 weeks [id number] Completed Kerline Palmer null, [facility] 6 16:14:11 Baby prematur e 32-36 weeks [id number] Completed 01/25/2018 Removal Reason: N/A GILLES MARES MD [address], [place], [address], [facility] 8 05:51:19 Baby prematur e 32-36 weeks [id number] Completed Kerline Palmer null, [facility] 6 16:14:11 Familial amyloid polyneur opathy, 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 Erin Dial null, [facility] 7 13:07:25 Familial amyloid polyneur opathy, Religion type [id number] Completed Kerline Palmer null, [facility] 6 16:14:11 Abdomina l pain in pregnanc y [id number] Completed 01/25/2018 Removal Reason: N/A GILLES MARES MD [address], [place], [place], [address] [place] [address] 4, [facility] 8 05:51:51 Abdomina l pain in pregnanc y 449284071 Completed Kerline Palmer null, [facility] 6 16:14:11 Gestatio n period, 36 weeks [id number] Completed 01/25/2018 Removal Reason: N/A GILLES MARES MD [address], [place], [place], [address] [place] [address] 4, [facility] 8 05:51:11 Gestatio n period, 36 weeks 91413730 Completed Kerline Palmer null, [facility] 6 16:14:10 Poor growth affectin g manageme nt [id number] Completed 01/25/2018 Removal Reason: N/A GILLES MARES MD [address], [place], [place], [address] [place] [address] 4, [facility] 8 05:51:02 Poor growth affectin g manageme nt 202793528 Completed Kerline Palmer null, [facility] 6 16:14:11 Genital herpes simplex 03550632 Active Erin Dial null, [facility] 7 13:07:25 Dysuria 96728414 Completed 01/25/2018 Removal Reason: N/A GILLES MARES MD [address], [place], [place], [address] [place] [address] 4, [facility] 8 05:51:43 Dysuria [id number] Completed Kerline Palmer null, [facility] 6 16:14:11 Pain of head and neck region 165615894 Active Erin Dial null, [facility] 7 13:07:25 Pain of head and neck region 660682960 Completed Kerline Palmer null, [facility] 6 16:14:11 Low back pain 081523784 Active Erin Dial null, [facility] 7 13:07:25 Low back pain 514345499 Completed Kerline Palmer null, [facility] 6 16:14:10 Asthma 579087086 Active 2012 Erin Dial null, [facility] 7 13:07:25 Pain in pelvis 44377560 Active Erin Dial null, [facility] 7 13:07:25 Abnormal uterine bleeding [id number] 100 Active Erin Dial null, [facility] 7 13:07:25 Abdomina l pain in early pregnanc y [id number] Completed 01/25/2018 Removal Reason: N/A GILLES MARES MD [address] [place] [address], 3[address] Floor, [place], [address] [place] [address] 8 05:50:52 History of bariatri c surgical procedur e [id number] Completed CBC, iron, ferritin , calcium and vit D level each trim Kerline Palmer null, [facility] 6 16:14:11 Uterine scar from previous surgery in pregnanc y, childbir and the puerperi [id number] Completed RCS 11/30 Kerline Palmer null, [facility] 6 16:14:11 Genital herpes simplex 71605900 Completed Kerline Palmer null, [facility] 6 16:14:10 Uterine scar from previous surgery in pregnanc y, childbir th and the puerperi 103894994 Completed 01/25/2018 RCS 8/4 Removal Reason: N/A GILLES MARES MD [address] [facility], [address] [place] [address], [phone], [facility] 8 05:52:13 Mild asthma 139584837 Completed Kerline Palmer null, [facility] 6 16:14:10 Anemia of pregnanc y 81079579 Completed 01/25/2018 on iron Removal Reason: N/A GILLES MARES MD [address] [facility], [address] [place] [address], [phone], [facility] 8 05:50:41 Anemia of pregnanc y 18723718 Completed on iron Kerline Estela null, [facility] 6 16:14:11 Problem Notes None recorded. Procedures Surgical History Date Name Laterality Status Provider Name and Address Organization Details Recorded Time 06/08/19 23 Saline Infusion Sonogram (SIS) cancelled Stephanie Hickey [facility] 05/24/2022 13:49:04 05/11/19 23 U/S PASTRY FINISHER Transvaginal completed GILLES MARES MD [address] [facility], [address] [place] [address], [phone], [facility] 05/15/2022 16:15:38 05/11/19 23 Date of Last Pap Smear completed Stephanie Hickey [facility] 05/25/2022 10:22:33 08/13/19 18 IUD Removal completed Sharlene Foster CNM [facility] 08/12/2017 11:01:02 01/26/20 17 IUD Insert completed GILLES MARES MD [address] [facility], [address] [place] [address], [phone], [facility] 01/25/2017 13:28:18 01/18/20 17 Saline Infusion Sonogram (SIS) completed GILLES MARES MD [address] [facility], [address] [place] [address], [phone], [facility] - [facility] 01/17/2017 19:57:03 08/21/19 17 Endometrial Biopsy Procedure Note completed GILLES MARES MD [address] [facility], [address] [facility], [place], [address], [facility] - [facility] 08/20/2016 16:02:02 07/07/19 17 Date of Last Mammogram completed Erin Dial [facility] 01/17/2017 14:17:56 01/12/20 16 O9G-CIAQ (0503F) completed GILLES MARES MD [address] [facility], [address] [facility], [place], [address], [facility] 01/17/2016 11:18:18 01/12/20 16 R2J-EEJEV completed GILLES MARES MD [address] [facility], [address] [place] [address], [place], [address], [facility] 01/17/2016 11:18:18 12/01/19 16 Caesarean Section completed Amira Ochoa [facility] 12/06/2015 11:37:34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 at the Laboratory . Advised she may see her lab results on her patient portal before the PASTRY FINISHER has had time to review them. Advised if any results are abnormal and need treatment her PASTRY FINISHER office will reach out to her for management . Candidiasis of vagina 72 679084 B37.31 Discussed with patient the microscope examverao phillip Summers performed today on her vaginal discharge confirms she has a vaginal yeast infection. Advised vaginal yeast occurs due to an imbalance in the pH of her vagina. This can occur due to stress, high sugar intake..Tr eatment plan reviewed with client, advised to take Diflucan tablets as prescribed . Advised I am also ordering Terazol 7 vaginal cream as she has menses today and it may not work as well during menses. [id number] GILLES MARES MD TAY2 [address] [facility] [address] 05/11/2022 14:52:05 05/11/2022 15:58:33 Gynecologic examination 22818402 Z01.419 PAP SENT W/ HPV Performs SBE. MMG next year.Due for routine blood tests. Congratula mary on weight loss. Depression screening 171 575342 Z13.31 Feels somewhat down but feels it is situationa l Screening mammography 24 029741 Z12.31 Female hirsutism 6209549 9 L68.0 Was investigat ed before, will repeat blood tests Menorrhagia 759901342 N9 2.0 Pt informed pelvic US shows thickened endometriu m, plan to repeat after next menses, possible SIS/EMB. Recurrent urinary tract infection 444475864 N39.0 UCx sent due to recent UTI and still feeling not completely resolved [id number] JOSE ZAPATA CNM WEC3 [address] [facility] [address] [place] [address] 12/03/2023 18:22:22 12/03/2023 19:57:57 Irregular periods 90763834 N92.6 Health Concerns Section Related Observation LastModified by Organization Rubaai ls LastModified Time None Recorded Concern Status LastModified by Organization Details LastModified Time None Recorded Advance Directives Directive None Recorded Payers Encounter Date Sequence Insurance Name Policy Number Policy Bradshaw Covered Member ID Bradshaw Member ID Guarantor Name 04/18/2018 1 [place] [id number] Stephanie T Ayush [id number] Stephanie T Ayush 02/20/2019 1 [place] [id number] Stephanie T Ayush [id number] Stephanie T Ayush 03/31/2022 1 [facility] [id number] Stephanie T Ayush [id number] Stephanie T Ayush 05/11/2022 1 [facility] [id number] Stephanie T Ayush [id number] Stephanie T Ayush 12/03/2023 1 [employer] [id number] Stephanie T Ayush [id number] Stephanie T Ayush Notes Date Note Type Note Provider Name and Address Organization Details Recorded Time 04/18/2018 text/html 37yo desire s sterilization. PMHx: Asthma PSHx: L/S gastric bypass, c/s x 2 CARMELO LENNON DO [address] [facility], [address] [place] [address], [phone], [facility] 04/18/2018 17:05:55 02/20/2019 text/html [facility] Annual GYNReported bypatient.History: no gynecologic complaints; no change in interval history Menstrual cycle:Normal menses; Pt c/o lower pelvic pain for 3-4 days Urinary symptoms:No hematuria; No incontinence Vulva:No genital lesion Vagina:Normal vaginal discharge Breast:No breast pain; No breast lump Sexual activity:sexually active yes Psychological symptoms:No depression; No anxiety Preventive measures:Encourage self breast examination; Encourage regular exercise; Encourage regular mammograms starting age 40; Followed with Q3 year pap smear and high risk HPV typing GILLES MARES MD [address], [address], [facility] 02/20/2019 15:21:12 03/31/2022 text/html [facility] Pelvic PainReported bypatient.Location :suprapubic Onset/Timin days Duration:intermitt ent Quality:cramping Severity:moderate Associated Symptoms:no vaginal discharge; no pain with urination; no feelings of urgency; no urinary frequency; slight itch, bleeding Women? s After-Hours Care problem visit. NEW PATIENT last seen at [facility] 01/2019 Here for evaluation and management of 3 days of light bleeding started the morning after having sex, concerned as partner stimulated her with his fingers so wondering could she have cut something. LMP: 03/11/22 - normally gets a menses every month, normally heavy and lasts about 4-5 days. 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 Last Pap 02/20/2019 was wnl Years ago history of CX polypectomy - results were wnl, but reports she had cryo done. Sexually activity: YesPartner: Male# of sexual Partners: 1 with partner for 3 months but recently started having sex. Wanting full STD testing done. Donna Awan CNM [address] [facility], [address] [place] [address], [phone], [facility] 03/31/2022 16:33:17 05/11/2022 text/html [facility] Annual GYNReported bypatient.History: no gynecologic complaints Menstrual cycle:Normal menses (heavy) Urinary symptoms:No hematuria; No incontinence Vulva:No genital lesion Vagina:Normal vaginal discharge Breast:No breast pain; No breast lump; No nipple discharge Current Contraception:Sati sfied with current contraception; control not practiced Sexual activity:No sexual complaints; No pain during intercourse; Normal libido Menopausal symptoms:No menopausal symptoms; Normal vaginal lubrication Psychological symptoms:No depression; No anxiety; No PMDD Preventive measures:Encourage regular exercise; Followed with Q3 year pap smear and high risk HPV typing; Needs to schedule mammogram HAD UTI A FEW MONTHS BACK, NOW SEE [place] IN UA. GILLES MARES MD 175 [facility], [address] [facility], [place], [address], [facility] 05/15/2022 16:16:03 12/03/2023 text/html Pt with menses coming 2 weeks early. Started as spotting and some RLQ pain, then to light menses. Pain has resolved. Bleeding continues. pt has hx of PCOS and irregular periods years ago, have been regular for many years. Pt also thinking possibly ruptured cyst JOSE ZAPATA, CNM [address] [facility], [address], [place], [address], [place] [facility] 12/03/2023 19:05:16 OBGyn Episode Ob Episode Information Episode Created Date Number of Fetuses Patient Bloodtype Patient rh Status Prepregnancy Weight lbs Domestic Partner Domestic Partner Phone Father Name Running Specialist Status 05/13/19 16 1 O Positive CLOSED Fetus Data First Name Last Name Admitted to NICU Weight (g) Sex Living Outcome Pediatric Complications Fetus ID Race Codes Race Delivery Type [id number] Problems Problem Notes Problem Name Start Date End Date Resolution Snomed Code Not e History of bariatric surgical procedure 078194839 CBC, iron , ferritin, calcium and vit D level each trim Uterine scar from previous surgery in , childbirth and the puerperium 742812495 RCS 8/ Mild asthma 357469213 Gestation period, 30 weeks 97201568 Gestation period, 33 weeks 05740660 Dysuria 18655031 Gestation period, 36 weeks 40197393 Anemia of 72598213 on iron Genital herpes simplex 4321805 6 Abdominal pain in 787393915 Baby premature 32-36 weeks 092393902 Familial amyloid polyneuropathy, Religion type 25978551 Pain of head and neck region 312563602 Low back pain 550099395 Poor growth affecting management 190519319 Angel Calculation Initial Angel Date Initial Exam Date Initial Exam Provider Initial Ultrasound Date Last Menstrual Period Date Ultra Sound Weeks Gestation 12/06/2015 05/13/2015 05/13/2015 03/03/2015 10 Eighteen To Twenty Week Angel Update Ultra Sound Date Fundal Height At Umbil Quickening Date Ultra Sound Latest Weeks Gestation Final Angel Confirmed By Final Angel Confirmed Date Final Angel Date Ultra Sound Latest Days Gestation 0 [email or web address] 10/13/2015 12/08/19 16 0 Pre-gallito Flowsheet Flowsheet Date 05/13/2015 Casiano Score Blood Edema Fundus Height Fundus Units Glucose Ketones Leukocytes Nitrite Labor Signs Protein Cervic Dilation Cervic Effacement Cervic Station none 10 cm none neg Type Weight in lbs Pre/Post Dialysis Refused 182.460076708735 BP Diastolic BP Location Tested BP Systolic BP Type 78 120 Fetus Heart Rate Present A 155 Present Fetus Movement Comments Patient interested in NTL an d possibly cell free DNA. will do chlamydia and GC testing on urine. Will not do glucola with history of gastric bypass. First trimester BW ordered. 05/16/2012 had negative 23 mutation cystic fibrosis done with last . Flowsheet Date 06/06/2015 Casiano Score Blood Edema Fundus Height Fundus Units Glucose Ketones Leukocytes Nitrite Labor Signs Protein Cervic Dilation Cervic Effacement Cervic Station none 13 wks none neg Type Weight in lbs Pre/Post Dialysis Refused 183.936357797290 BP Diastolic BP Location Tested BP Systolic BP Type 60 120 Fetus Heart Rate Present Fetus Movement Comments Did not do 1st trim blood te sts, will do them todayContinues with daily N/V but able to keep down food; declines intervention at this time, will f/u in 2 weeks.Takes PNVDeclines flu shotUnable to doppler FHR, sent for US1st trim ST results not received Flowsheet Date 06/21/2015 Casiano Score Blood Edema Fundus Height Fundus Units Glucose Ketones Leukocytes Nitrite Labor Signs Protein Cervic Dilation Cervic Effacement Cervic Station none 16 wks none none neg Type Weight in lbs Pre/Post Dialysis Refused 186.697809528143 BP Diastolic BP Location Tested BP Systolic BP Type 68 120 Fetus Heart Rate Present A 145 Present Fetus Movement A Yes Comments Ob visit . pt feeling well.I nformed about anemia, iron erx sentReceived DNA test result from [facility], wnlNeeds AFP onlyLevel 2 US in 3-4 wkDeclines flu vaccine Flowsheet Date 07/18/2015 Casiano Score Blood Edema Fundus Height Fundus Units Glucose Ketones Leukocytes Nitrite Labor Signs Protein Cervic Dilation Cervic Effacement Cervic Station none 19 wks none none neg Type Weight in lbs Pre/Post Dialysis Refused 188.505241440399 BP Diastolic BP Location Tested BP Systolic BP Type 60 100 Fetus Heart Rate Present A 155 Present Fetus Movement A Yes Comments OB VISIT PT FEELING OK. STIL L NOT EATING WELL. AFP DONE TODAY. PT BOOKED FOR LEVEL TWO U/S 07/26/15Weight gain during discussedHad a needle injury at work, with negative blood work; received hep B vaccine as not immunisedwill send for iron, vit B12 and folate levels; she has nod taken vit B 12 since Flowsheet Date 08/12/2015 Casiano Score Blood Edema Fundus Height Fundus Units Glucose Ketones Leukocytes Nitrite Labor Signs Protein Cervic Dilation Cervic Effacement Cervic Station none 24 cm none none neg Type Weight in lbs Pre/Post Dialysis Refused 192.023725906281 BP Diastolic BP Location Tested BP Systolic BP Type 64 96 Fetus Heart Rate Present A 145 Present Fetus Movement A Yes Comments PT states that her appetite is a little better. Had a syncopal episode 2 wk ago, seen in ER and found with Hgb 9.3. Feels tired.Will send for hematology consult for anemia as she cannot tolerate PO iron.Pt informed about increased vit B12 and nl folate levelWill check 2nd trim blood tests and HgbA1c instead of 1GT Flowsheet Date 09/16/2015 Casiano Score Blood Edema Fundus Height Fundus Units Glucose Ketones Leukocytes Nitrite Labor Signs Protein Cervic Dilation Cervic Effacement Cervic Station none 30 cm none Type Weight in lbs Pre/Post Dialysis Refused 192.753582451055 BP Diastolic BP Location Tested BP Systolic BP Type 60 100 Fetus Heart Rate Present A 145 Present Fetus Movement A Decreased Comments Has seen Dr Velazquez at [facility], received 2 uPRBC, and will follow up in 3 wk, will obtain recordsC/o decreased FM, will do NST todayWill do blood tests todayEFW US at [facility] at 32 wk Flowsheet Date 09/29/2015 Casiano Score Blood Edema Fundus Height Fundus Units Glucose Ketones Leukocytes Nitrite Labor Signs Protein Cervic Dilation Cervic Effacement Cervic Station none 31 cm none negative none neg Type Weight in lbs Pre/Post Dialysis Refused 195.396116969902 BP Diastolic BP Location Tested BP Systolic BP Type 74 104 sitting Fetus Heart Rate Present A 140 Present Fetus Movement A Yes Comments C/o heartburn, continues to vomit but able to keep down food. Advised for Tums and OTC pepcidF/u with hematology on 6/8Has appt for US at [facility] in 2 wkRequests to schedule RCS, not interested in TOLAC anymore Flowsheet Date 10/13/2015 Casiano Score Blood Edema Fundus Height Fundus Units Glucose Ketones Leukocytes Nitrite Labor Signs Protein Cervic Dilation Cervic Effacement Cervic Station none 32 none neg Type Weight in lbs Pre/Post Dialysis Refused 196.762505664662 BP Diastolic BP Location Tested BP Systolic BP Type 74 110 Fetus Heart Rate Present A 150 Fetus Movement A Yes Comments unable to void, pt stated th at she wanted a for 11/27 or 11/28 not 12/01/15. Will discuss with Yoseph Mares at next visit. Did reviewed protocol for 39 weeks. Doing well. Much more energetic. FM kick counts reviewed. Has US today at [facility]. Flowsheet Date 10/26/2015 Casiano Score Blood Edema Fundus Height Fundus Units Glucose Ketones Leukocytes Nitrite Labor Signs Protein Cervic Dilation Cervic Effacement Cervic Station Type Weight in lbs Pre/Post Dialysis Refused 199.306656349528 BP Diastolic BP Location Tested BP Systolic BP Type 76 126 sitting Fetus Heart Rate Present Fetus Movement Comments Came to the office for sever e umbilical pain, worse with standing up, started today. Vomitting every meal. No fever or chills. no leaking fluid.NST reactiveToco no ctxAbd gravid, palpable hernia above umbilicus, tenderSent to LDR for further evaluation Flowsheet Date 11/11/2015 Casiano Score Blood Edema Fundus Height Fundus Units Glucose Ketones Leukocytes Nitrite Labor Signs Protein Cervic Dilation Cervic Effacement Cervic Station none 35 cm none none neg 0cm 0% -3 Type Weight in lbs Pre/Post Dialysis Refused 198.463586711373 BP Diastolic BP Location Tested BP Systolic BP Type 70 122 sitting Fetus Heart Rate Present A 145 Present Fetus Movement A Yes Comments Pt states that she has no le aking or contractions. Baby active. Pt c/o fatigue.GBS sent todayF/u with hematology, per pt last Hbg was 10 Flowsheet Date 11/17/2015 Casiano Score Blood Edema Fundus Height Fundus Units Glucose Ketones Leukocytes Nitrite Labor Signs Protein Cervic Dilation Cervic Effacement Cervic Station 2+ 34 none none neg Type Weight in lbs Pre/Post Dialysis Refused 199.516541771058 BP Diastolic BP Location Tested BP Systolic BP Type 68 110 Fetus Heart Rate Present A 145 Present Fetus Movement A Yes Comments PT FEELING tired. POS MOVEMENT.Will see instrumentation and controls technician next weekEFW today 27%, HOSSEIN 13 Flowsheet Date 11/25/2015 Casiano Score Blood Edema Fundus Height Fundus Units Glucose Ketones Leukocytes Nitrite Labor Signs Protein Cervic Dilation Cervic Effacement Cervic Station trace 38 cm none none neg Type Weight in lbs Pre/Post Dialysis Refused 196.414981327280 BP Diastolic BP Location Tested BP Systolic BP Type 70 122 Fetus Heart Rate Present A 145 Present Fetus Movement A Decreased Comments pt doing well. csection book ed 12/01/15, informed consent obtained, will go for preop blood tests 8/3Pt scheduled on 11/27 for blood transfusion with hematologyNST reactive today, for decreased FMValtrex for HSV prophylaxis Flowsheet Date 12/06/2015 Casiano Score Blood Edema Fundus Height Fundus Units Glucose Ketones Leukocytes Nitrite Labor Signs Protein Cervic Dilation Cervic Effacement Cervic Station Type Weight in lbs Pre/Post Dialysis Refused BP Diastolic BP Location Tested BP Systolic BP Type 60 120 Fetus Heart Rate Present Fetus Movement Comments Flowsheet Date 12/23/2015 Casiano Score Blood Edema Fundus Height Fundus Units Glucose Ketones Leukocytes Nitrite Labor Signs Protein Cervic Dilation Cervic Effacement Cervic Station Type Weight in lbs Pre/Post Dialysis Refused BP Diastolic BP Location Tested BP Systolic BP Type 76 122 sitting Fetus Heart Rate Present Fetus Movement Comments Flowsheet Date 01/12/2016 Casiano Score Blood Edema Fundus Height Fundus Units Glucose Ketones Leukocytes Nitrite Labor Signs Protein Cervic Dilation Cervic Effacement Cervic Station Type Weight in lbs Pre/Post Dialysis Refused 187.220557281517 BP Diastolic BP Location Tested BP Systolic BP Type 70 110 sitting Fetus Heart Rate Present Fetus Movement Comments Menstrual History Last Menstrual Date Menses Monthly On Bcp Conception Prior Menses Frequency Hcg Plus Date Menarche Onset Age 1103/03/2015 true 28 11 Genetic Screening And Infection History Question Response Note Patient's Age Will Be 35 Yea rs Or Older At Estimated Date of Delivery true Thalassemia (Chadian, Armenian, Mediterranean, Or Background): MCV < 80 false Neural Tube Defect (Meningom yelocele, Spina Bifida, Or Anencephaly) false Congenital Heart Defect false Down Syndrome false Ry-Sachs (eg, Religion, Cajun, Yakut-Indonesian) f alse [place] Disease false Sickle Cell Disease Or Trait () false Hemophilia Or Other Blood Disorders false Muscular Dystrophy false Cystic Fibrosis false Lenny's Chorea false Mental Retardation/Autism false If Yes, Was Person Tested For Fragile X? false Other Inherited Genetic Or Chromosomal Disorder false Maternal Metabolic Disorder (eg, Type 1 Diabetes , PKU) false Patient Or Baby's Father Had A Child With Defects Not Listed Above false Recurrent Loss, Or A Stillbirth false Medications (including Suppl ements, Vitamins, Herbs, OTC Drugs), Illicit/Recreational Drugs, Alcohol false If Yes, Agent(s) And Strength/Dosage false Any Other Genetic History false Live With Someone With TB Or Exposed To TB false Patient Or Partner Has History Of Genital Herpes true PATIENT 2013 DX Rash Or Viral Illness Since Last Menstrual Perio d false History Of STD, Gonorrhea, Chlamydia, HPV, Syphi lis false Other Infection History false Familial Dysautonomia (Ashkenazi Religion) false Spinal Muscular Atrophy false Parkinson Disease false Delivery Information Delivery Date Delivery Type Labor Anesthesia Weeks Gestation Incision Type Labor Labor Length Hrs Delivered By Post Complications Tubal Sterilization Discharge Date Comments 6 39 Discharge Information Feeding Method Contraceptive Method Maternal HG B and HCT Levels Ob Episode Information Episode Created Date Number of Fetuses Patient Bloodtype Patient rh Status Prepregnancy Weight lbs Domestic Partner Domestic Partner Phone Father Name Running Specialist Status 05/13/19 16 1 CLOSED Fetus Data First Name Last Name Admitted to NICU Weight (g) Sex Living Outcome Pediatric Complications Fetus ID Race Codes Race Delivery Type 2863.29 95 F Full Term [id number] - Primary Angel Calculation Initial Angel Date Initial Exam Date Initial Exam Provider Initial Ultrasound Date Last Menstrual Period Date Ultra Sound Weeks Gestation 0 Eighteen To Twenty Week Angel Update Ultra Sound Date Fundal Height At Umbil Quickening Date Ultra Sound Latest Weeks Gestation Final Angel Confirmed By Final Angel Confirmed Date Final Angel Date Ultra Sound Latest Days Gestation 0 0 Menstrual History Last Menstrual Date Menses Monthly On Bcp Conception Prior Menses Frequency Hcg Plus Date Menarche Onset Age Delivery Information Delivery Date Delivery Type Labor Anesthesia Weeks Gestation Incision Type Labor Labor Length Hrs Delivered By Post Complications Tubal Sterilization Discharge Date Comments 3 Discharge Information Feeding Method Contraceptive Method Maternal HG B and HCT Levels Ob Episode Information Episode Created Date Number of Fetuses Patient Bloodtype Patient rh Status Prepregnancy Weight lbs Domestic Partner Domestic Partner Phone Father Name Running Specialist Status 12/06/19 16 1 CLOSED Fetus Data First Name Last Name Admitted to NICU Weight (g) Sex Living Outcome Pediatric Complications Fetus ID Race Codes Race Delivery Type [id number] F Full Term [id number] - Repeat Angel Calculation Initial Angel Date Initial Exam Date Initial Exam Provider Initial Ultrasound Date Last Menstrual Period Date Ultra Sound Weeks Gestation 0 Eighteen To Twenty Week Angel Update Ultra Sound Date Fundal Height At Umbil Quickening Date Ultra Sound Latest Weeks Gestation Final Angel Confirmed By Final Angel Confirmed Date Final Angel Date Ultra Sound Latest Days Gestation 0 0 Menstrual History Last Menstrual Date Menses Monthly On Bcp Conception Prior Menses Frequency Hcg Plus Date Menarche Onset Age Delivery Information Delivery Date Delivery Type Labor Anesthesia Weeks Gestation Incision Type Labor Labor Length Hrs Delivered By Post Complications Tubal Sterilization Discharge Date Comments 6 Discharge Information Feeding Method Contraceptive Method Maternal HG B and HCT Levels
--- OUTSIDE RECORDS SUMMARY | 2024-06-24 12:29 | XMS_ITS | Clinical Summary ---
Author Organization [facility] Address [address] [place] [address] Care Team Providers Care Temporary Office Assistant Name Role Phone Ed Mckeon PA-C Primary Care Provider [phone] Allergies Active Allergy Reactions Criticality Noted Date Comments Penicillins Hives Medium 07/11/2015 Medications Medication Sig Dispensed Refills Start Date End Date Status albuterol (PROVENTIL HFA; VENTOLIN HFA) 108 (90 Base) MCG/ACT inhaler Inhale 2 puffs 4 times daily (every 6 hours) as needed. Active Active Problems No known active problems Family History Medical History Relation Name Comments Diabetes Father Hypertension Father Diabetes Mother Hypertension Mother Relation Name Status Comments Father Alive Mother Alive Social History Tobacco Use Types Packs/Day Years Used Date Smoking Tobacco: Never Smokeless Tobacco: Never Sex and Gender Information Value Date Recorded Sex Assigned at Not on file Gender Identity Not on file Sexual Orientation Not on file Last Filed Vital Signs Vital Sign Reading Time Taken Comments Blood Pressure - - Pulse - - Temperature - - Respiratory Rate - - Oxygen Saturation - - Inhaled Oxygen Concentration - - Weight 85.7 kg (189 lb) 02/02/2021 3:59 PM EDT Height 167.6 cm (5' 6 ) 02/02/2021 3:59 PM EDT Body Mass Index 30.51 02/02/2021 3:59 PM EDT Plan of Treatment Health Maintenance Due Date Last Done Comments Hepatitis C Virus Screening 1979 HIV Screening 07/11/1992 DTaP/Tdap/Td Vaccines (1 - Tdap) 07/11/1998 Hepatitis B Vaccines (1 of 3 - 19+ 3-dose series) 07/11/1998 Mammogram 2019 Influenza Vaccine 11/28/2023 COVID-19 Vaccine (3 - 2023-2 5 season) 2023 02/02/2021, 01/12/2021 Pap Smear (Ages 21-65) 05/11/2025 05/11/2022 HPV Vaccines Aged Out No longer eligi ble based on patient's age to complete this topic Pneumococcal Vaccine: Pediatric (0-5 Years) and At-Risk Patients (6 to 49 Years) Aged Out No longer eligible b ased on patient's age to complete this topic Procedures Procedure Name Priority Date/Time Associated Diagnosis Comments THINPREP PAP(CASK MAKER) HPV SCR RFX HPV 16,18/45 Routine 05/11/2022 2:55 PM EST from Last 3 Months or Most Recently Relevant to Health Maintenance Results * ThinPrep Pap(Sand Polisher) HPV Scr Rfx HPV 16,18/45 (05/11/2022 2:55 PM EST) Clinical Information [facility] Comment:Routine exam LMP: [facility] Comment:04/24/2022 Previous PAP: [facility] Comment:02/20/2019 Previous Biopsy [facility] Comment:NONE GIVEN Source: [facility] Comment:Cervix, Endocervix Statement of Adequacy: [facility] Comment: Satisfactory for evaluation. Endocervical/transformation zone component present. Interpretation/Res ult: [facility] Comment:Negative for intraep ithelial lesion or malignancy. Comment: [facility] Comment: This Pap test has been evaluated with computer assisted technology. 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 It is not a diagnostic test and is subject to false negative and false positive results. It is most reliable when a satisfactory sample, regularly obtained, is submitted with relevant clinical findings and history, and when the Pap result is evaluated along with historic and current clinical information. Hpv Mrna [id number] Not Detected Not Detected [facility] Comment: Methodology: Hose Turner-Mediated Amplification This assay detects E6/E7 viral messenger RNA (mRNA) from 14 high-risk HPV types (16,18,31,33,35,39,45,51,52,56,58,59,66,68). Cervical sources are required for HPV testing. If a vaginal source from a patient who has had a total hysterectomy with removal of cervix was submitted, please contact the testing laboratory for alternative testing options. For additional information, please refer to http://education.TechflakesGB/faq/LDZ516l7 (This link if provided for information/ educational purposes only.) 05/11/2022 2:55 PM EST 05/13/2022 12:33 PM EST Narrative [facility] - 05/19/2022 12:27 PM EST [id number] RTN Chiqui Mares MD LAB AMB PATH/[facility] [address] [facility] 3[address], [address] [place], [place] [id number] from Last 3 Months or Most Recently Relevant to Health Maintenance Care Teams Temporary Office Assistant Relationship Specialty Start Date End Date Ed Mckeon PA-C PCP - General Internal Medicine 02/02/21
--- OUTSIDE RECORDS SUMMARY | 2024-06-24 12:29 | XMS_ITS | Clinical Summary ---
Author Organization [facility] Address [address] [place] [address] Care Team Providers Care Cover Inspector Name Role Phone Ed Mckeon Primary Care Provider [phone] Surgical History Surgery Date Site/Laterality Comments ABDOMINAL SURGERY PROCEDURE:ABDOMINAL SURGERY GASTRIC BYPASS 2010 PROCEDURE:LAPAROSCOPIC GASTRIC BYPASS SECTION 2012 PROCEDURE: SECTION WISDOM TOOTH EXTRACTION PROCEDURE:WISDOM TOOTH EXTRACTION SECTION 12/01/2015 N/A PROCEDURE: SECTION;COMMENT:Procedure: OB SECTION REPEAT; Surgeon: Chiqui Mares MD; Location: [facility] DELIVERY RO[facility]; Service: Obstetrics; Laterality: N/A; Medical History Medical History Date Comments Anemia 2012 DX:Anemia History of transfusion DX:Histor y of transfusion Anemia DX:Anemia;COMMEN T:has had two transfusions during Asthma DX:Asthma;COMMEN T:albuterol - doesn't really take it Umbilical hernia September 2015 DX:Umbilical he rnia Depression DX:Depression;CO MMENT:on wellbutrin prior to . Family History Medical History Relation Name Comments Diabetes Father Heart disease Father Hypertension Father Diabetes Mother Hypertension Mother Relation Name Status Comments Father Alive Mother Alive Social History Tobacco Use Types Packs/Day Years Used Date Smoking Tobacco: Former Cigarettes 0.3 2.2 0 10/06/2009 - 12/07/2011 Smokeless Tobacco: Never Alcohol Use Standard Drinks/Week Comments No 0 (1 standard drink = 0.6 oz pur e alcohol) Comments Unknown Sex and Gender Information Value Date Recorded Sex Assigned at Not on file Legal Sex Female 6:30 PM EST Gender Identity Not on file Sexual Orientation Not on file Obstetrics History Plan of Treatment Health Maintenance Due Date Last Done Comments Breast Cancer Screening 1979 Hepatitis B Vaccines (1 of 3 - 19+ 3-dose series) 07/11/1998 07/11/2015 Cervical Cancer Screening: P ap Smear 07/11/2000 Depression Screening 03/31/2022 HIV Screening 03/31/2022 Hepatitis C Screening 03/31/2022 Social Influencers of Health Screening 03/31/2022 COVID-19 Vaccine (1 - 2023-2 5 season) 2023 Influenza Vaccine (#1) 2023 DTaP,Tdap,and Td Vaccines (2 - Td or Tdap) 12/03/2025 12/04/2015 HIB Vaccines Aged Out No longer eligi ble based on patient's age to complete this topic HPV Vaccines Aged Out No longer eligi ble based on patient's age to complete this topic Hepatitis A Vaccines Aged Out No long er eligible based on patient's age to complete this topic IPV Vaccines Aged Out No longer eligi ble based on patient's age to complete this topic MMR Vaccines Aged Out No longer eligi ble based on patient's age to complete this topic Meningococcal ACWY Vaccine Aged Out N o longer eligible based on patient's age to complete this topic Meningococcal B Vacine Aged Out No lo nger eligible based on patient's age to complete this topic Pneumococcal Vaccine: Pediat rics (0 to 5 Years) and At-Risk Patients (6 to 64 Years) Aged Out No longer eligi ble based on patient's age to complete this topic RSV Immunization Patients Un ja 20 months Aged Out No longer eligible b ased on patient's age to complete this topic Varicella Vaccines Aged Out No longer eligible based on patient's age to complete this topic Care Teams Cover Inspector Relationship Specialty Start Date End Date Ed Mckeon PA [address] [place] [id number] PCP - General Physician Physical Meteorologist 10/03/19
--- OUTSIDE RECORDS SUMMARY | 2024-06-24 12:29 | XMS_ITS ---
Author Organization [facility]. Address [address] [place] [address] [id number] [place] [address] Care Team Providers Care Health Policy Manager Name Role Phone Joann Phillips Primary Care Provider REASON FOR VISIT Refill MEDICATIONS Medication SIG (Take, Route, Fr equency, Duration) Notes Start Date End Date Status LORazepam 0.5 MG TAKE 1 TABLET BY KRYSTIAN TH TWICE A DAY NEEDED FOR 30 DAYS for 30 days 05/05/2024 Active Encounters Encounter Location Date Provider Diagnosis [id number] [place] [address] 03/27/2024 Joann Phillips PLAN OF TREATMENT Medication Medication Name Sig Start Date Stop Date Notes LORazepam 0.5 MG TAKE 1 TABLET BY KRYSTIAN TH TWICE A DAY NEEDED FOR 30 DAYS for 30 days 05/05/2024 Next Appt Details Provider Name:Joann Phillips , 08/10/2024 02:00:00 PM, [address] [place], [address], Provider Name:Maria Dolores Medrano son, 08/10/2024 03:00:00 PM, [address] [place], [address],
== END 2024-06-24 11:14 | disposition home or self-care (01) ==
PROVIDERS: Visit Provider Physician Assistant
DX: Z13.9 Encounter for screening, unspecified (principal); J02.9 Acute pharyngitis, unspecified

== ENCOUNTER → 2024-06-24 10:16 | Outpatient (BNVA) | payer OTHER, SELFPAY | DX: J02.9 Acute pharyngitis, unspecified (principal) | CPT/HCPCS: 87880 ==